=== PATIENT | male | born 1945 | race Caucasian/White ===

== ENCOUNTER → 2017-09-09 | Outpatient (CLI) | payer MEDICARE ==
--- NOTE | 2017-09-09 13:01 | MR ---
EXAMINATION TYPE: MR knee LT wo con DATE OF EXAM: 09/09/2017 COMPARISON: Plain film 09/02/2017 HISTORY: Left knee pain TECHNIQUE: Multiplanar, multisequence imaging of the left knee is performed without IV contrast. FINDINGS: MEDIAL MENISCUS: There is abnormal signal involving the posterior horn of the medial meniscus which i s somewhat diffuse as well as stellate in pattern and extends to the articular surface, anterior horn is intact. LATERAL MENISCUS: Diffuse increased signal also present in the anterior horn of the lateral meniscus with extension into the body, some linear increased signal present on coronal image 15 in the anterio r horn is thought to extend to the articular surface possibly indicative of tear, there may be a meni scal cyst immediately adjacent to the anterior horn of the medial meniscus CRUCIATE LIGAMENTS: The anterior and posterior cruciate ligaments are intact and unremarkable. COLLATERAL LIGAMENTS: The medial collateral ligament and lateral collateral ligament complex are inta ct and unremarkable. EXTENSOR MECHANISM: Visualized quadriceps and patellar tendons are intact. EFFUSION: There is a small joint effusion POPLITEAL CYST: No popliteal/more cyst. TRICOMPARTMENT SPACES: Maintained CARTILAGE: Suspect some grade II chondromalacia at the medial aspect of the tibial surface proximally and posteriorly BONE MARROW SIGNAL: Some probable reactive marrow signal change also noted in the proximal tibia post eriorly and medially. Cystic focus is present at the origin of the anterior cruciate ligament, there may be intraosseous ganglion. OTHER: Cystic focus present at the level of the insertion of the posterior cruciate ligament may rep resent a ganglion cyst. May be a small ganglion cyst at the level of the insertion of the pes anserin e complex, some increased signal may represent some tendinosis of the insertion. Subcutaneous edema c hanges present. IMPRESSION: Findings suggestive of tears of both medial and lateral menisci. Additional findings above.
== END | disposition home or self-care (01) ==
LOC: RADMRIMAIN 12:14
PROVIDERS: ATTEND Orthopaedic Surgery
DX: M25.462 Effusion, left knee (principal); R93.7 Abnormal findings on diagnostic imaging of other parts of musculoskeletal system

== ENCOUNTER → 2017-09-12 | Outpatient (CLI) | payer MEDICARE ==
[2017-09-12 11:03] LABS: Basophils % (A) 0 %; Eosinophils # (A) 0.2 k/uL (0-0.7); Eosinophils % (A) 3 %; HCT 43.3 % (39.0-53.0); HGB 14.1 gm/dL (13.0-17.5); Lymphocytes # (A) 1.1 k/uL (1.0-4.8); Lymphocytes % (A) 20 %; MCH 29.1 pg (25.0-35.0); MCHC 32.6 g/dL (31.0-37.0); MCV 89.4 fL (80.0-100.0); Mean Platelet Volume 8.9; Monocytes # (A) 0.4 k/uL (0-1.0); Monocytes % (A) 8 %; Neutrophils # (A) 3.7 k/uL (1.3-7.7); Neutrophils % (A) 66 %; Platelet Count 157 k/uL (150-450); RBC 4.84 m/uL (4.30-5.90); RDW 14.2 % (11.5-15.5); WBC 5.6 k/uL (3.8-10.6)
[2017-09-12 11:33] LABS: Potassium 4.4 mmol/L (3.5-5.1)
== END | disposition home or self-care (01) ==
LOC: LABPAT 09:56
PROVIDERS: ATTEND Orthopaedic Surgery
DX: Z01.812 Encounter for preprocedural laboratory examination (principal); M23.92 Unspecified internal derangement of left knee
CPT/HCPCS: 36415; 80051; 85025; 93005

== ENCOUNTER 2017-09-20 09:05 | Day surgery (SDC) | payer MEDICARE ==
[2017-09-17 15:27] VITALS: BMI 33.3
--- NOTE | 2017-09-19 10:41 | P.HPOR ---
History of Present Illness H&P Date: 09/19/17 Chief Complaint: left knee pain The patient is a 72 year old retired male who presents with worsening left knee pain. He notes medial pain with weightbearing activities and at night. He notes the pain significantly limits him. Review of Systems All systems: negative (left knee pain) Past Medical History Past Medical History: GERD/Reflux, Hypertension, Osteoarthritis (OA) History of Any Multi-Drug Resistant Organisms: None Reported Past Surgical History: Hernia Repair Additional Past Surgical History / Comment(s): Hemorrectomy, cataracts, ureter repaired. Past Anesthesia/Blood Transfusion Reactions: No Reported Reaction Smoking Status: Former smoker - Past Family History Mother Family Medical History: No Reported History Brother(s) Family Medical History: Cancer Sister(s) Family Medical History: Cancer Medications and Allergies Home Medications Medication Instructions Recorded Confirmed Type Aspirin 81 mg PO DAILY 09/17/17 09/17/17 History Ibuprofen [Motrin] 400 mg PO Q8HR PRN 09/17/17 09/17/17 History Omeprazole [PriLOSEC] 40 mg PO DAILY 09/17/17 09/17/17 History Tamsulosin HCl [Flomax] 0.4 mg PO DAILY 09/17/17 09/17/17 History amLODIPine/ATORVASTATIN [Caduet 5 1 tab PO DAILY 09/17/17 09/17/17 History mg-10 mg Tablet] Allergies Allergy/AdvReac Type Severity Reaction Status Date / Time No Known Allergies Allergy Verified 09/17/17 14:59 Physical Examination - Knee left Effusion grade: grade 1 Varus alignment in stance: normal Tenderness with palpation: medial Gait: normal ROM: extension: -5 degrees ROM: flexion: 120 degrees Strength: extension: 5/5 Strength: flexion: 5/5 Patella exam: normal Meniscal tests: medial meniscal tests: positive, medial joint line pain: positive Results - Diagnostic results Knee MRI: report reviewed (left knee medial and lateral meniscal tears) Assessment and Plan Assessment: Symptomatic left knee medial meniscal tear Plan: The patient's condition and treatment options were discussed. He opts to proceed with arthroscopy and possible partial medial meniscectom as he is having pain and mechanical symptoms that limit him. Time with Patient: Less than 30
[~2017-09-20 09:05] MED LIST: DEXAMETHASONE SOD PHOSPHATE 10 MG/ML 1 ML VIAL IV ONE; LACTATED RINGERS 1,000 ML IV SCH; LIDOCAINE 1% 20 ML VIAL (10MG/ML) FOR IV START INTRADERMA PRN; MIDAZOLAM 2 MG/2 ML VIAL IV PRN; ONDANSETRON 4 MG/2 ML VIAL IVP ONE; SCOPOLAMINE 1.5MG/72HR PATCH TRANSDERM ONE; ceFAZolin IN SWFI 2 GM/20 ML SYRINGE IVP ONE
[2017-09-20 09:42] VITALS: RESP 16
[2017-09-20] MEDS ORDERED: fentaNYL (PF) 50 MCG/ML 2 ML AMP ONE (10:31)
[2017-09-20] MEDS ORDERED: LIDOCAINE 1% INJ 10MG/ML (20 ML MDV) ONE (10:31)
[2017-09-20] MEDS ORDERED: HYDROmorphone (PF) 1 MG/ML ONE (10:31)
[2017-09-20] MEDS ORDERED: PROPOFOL 10 MG/ML 20 ML VIAL IV ONE (10:31)
[2017-09-20] MEDS ORDERED: MIDAZOLAM 2 MG/2 ML VIAL ONE (10:31)
[2017-09-20] MEDS ORDERED: SUCCINYLCHOLINE CHLORIDE 100 MG/5 ML SYR IV ONE (10:31)
[2017-09-20 11:37] VITALS: TEMP 97
--- NOTE | 2017-09-20 11:38 | P.OP ---
Date of Procedure: 09/20/17 Preoperative Diagnosis: Left knee internal derangement Postoperative Diagnosis: Left knee posterior medial meniscal tear/anterior lateral meniscal tear/grade 2 chondral injury distal medial femoral condyle/grade 2 chondral injury lateral patella facet Procedure(s) Performed: Left knee arthroscopic partial medial meniscectomy/partial lateral meniscectomy/ medial femoral chondrectomy/patellar chondroplasty Anesthesia: GETA Surgeon: Ollie Land Estimated Blood Loss (ml): 10 Pathology: none sent Condition: stable Disposition: PACU Indications for Procedure: The patient's a 72-year-old male who presents with progressive left knee pain and mechanical symptoms despite conservative measures. A discussion of the risks and benefits of operative intervention versus continued conservative measures was made with the patient. He opted to proceed with surgery. Operative risks to include infection, neurovascular injury, development of blood clots, possible incomplete resolution of symptoms, possible worsening symptoms and need for subsequent procedures was discussed. Informed consent was obtained. Operative Findings: As below Description of Procedure: The patient was brought to the operating room, and after induction of general anesthesia examined the left knee. Collaterals were stable, Selwyn was negative, and posterior drawer was negative. The left lower extremity was prepped and draped in normal fashion. A superior lateral portal was made through a 3 mm skin incision superior and lateral to the patella. This was used for outflow. A lateral portal was made through a similar incision lateral to the patella tendon above the joint. Diagnostic arthroscopy was performed. A medial portal was made through a similar incision medial to the patella tendon above the joint line. On inspection the medial compartment, he was noted to have an oblique tear involving the posterior portion the medial meniscus in the white-red junction. This was not amenable to repair. This was debrided back to stable base with straight baskets and a motorized shaver. The remaining medial meniscus was stable and intact. A corresponding grade 2 chondral injury was noted involving the posterior medial portion of the medial femoral condyle. There was a loose chondral fragment debrided back to stable base with a motorized shaver. On inspection of the notch, the anterior cruciate ligament appeared to be intact. On inspection of the lateral compartment, a small flap tear involving the anterior horn of the lateral meniscus in the white-junction was noted. This was debrided back to stable base with a motorized shaver. The remaining chondral surface and lateral meniscus appeared intact. On inspection the patellofemoral articulation, a grade 2 chondral injury was noted involving the lateral patellar facet. A small loose chondral fragment was debrided back to stable base with a motorized shaver. The gutters were clear of debris. The knee was then thoroughly irrigated. The portals were closed with Steri-Strips. A sterile dressing was applied in addition to a compression stocking. The patient was awoken from general anesthesia and transferred to recovery room in good condition. Blood loss was estimated at 10 mL. No complications were incurred.
[2017-09-20] MEDS: HYDROmorphone 0.5 MG/0.5 ML SYRINGE IVP PRN ×2 (11:41→11:50)
[2017-09-20] MEDS ORDERED: KETOROLAC 30 MG/ML 1 ML VIAL IVP ONE (11:42)
[2017-09-20] MEDS: MEPERIDINE 50 MG/ML SYRINGE IVP ONE ×2 (11:56→12:10)
[2017-09-20] MEDS ORDERED: hydrALAZINE HCL 20 MG/ML 1 ML VIAL IVP ONE (12:09)
[2017-09-20] MEDS ORDERED: traMADol 50 MG TAB PO ONE (12:43)
[2017-09-20 13:18] VITALS: BP 152/72; PULSE 56
== END 2017-09-20 13:40 | disposition home or self-care (01) ==
LOC: OR 09:05
PROVIDERS: ATTEND Orthopaedic Surgery
DX: S83.242A Other tear of medial meniscus, current injury, left knee, initial encounter (principal); S83.282A Other tear of lateral meniscus, current injury, left knee, initial encounter; X58.XXXA Exposure to other specified factors, initial encounter; K21.9 Gastro-esophageal reflux disease without esophagitis; I10 Essential (primary) hypertension; M19.90 Unspecified osteoarthritis, unspecified site; Z79.82 Long term (current) use of aspirin; Z79.899 Other long term (current) drug therapy; Z87.891 Personal history of nicotine dependence
CPT/HCPCS: 29880; J2250; J0360; J1100; J2175; J2405; J2001; J3010; J1885; J1170 ×2; J0330; J2704; J0690

== ENCOUNTER → 2017-11-25 | Outpatient (CLI) | payer MEDICARE ==
--- NOTE | 2017-11-25 08:27 | MR ---
EXAMINATION TYPE: MR shoulder LT wo con DATE OF EXAM: 11/25/2017 COMPARISON: Outside left shoulder x-ray 5 days ago. HISTORY: Left shoulder pain with difficulty raising overhead for one week per patient. TECHNIQUE: Multiplanar, multisequence imaging of the left shoulder is performed without contrast. FINDINGS: Rotator Cuff: There is full-thickness tear of the supraspinatus tendon retracted to level of the acro mion roughly 3.4 cm seen best paracoronal image 10. The infraspinatus tendon has marked abnormal increased signal with areas of partial tear worse along the bursal surface, some fibers remain intact to humeral head attachment. Marked surrounding fluid si gnal is present. High riding humeral head is noted. Rotator cuff muscle bulk is fairly well preserved. Subscapularis tendon shows marked increase surrounding fluid. It is suspected completely torn as morenita ps tendon is dislocated. Acromioclavicular Joint: There is mild to moderate joint space loss and capsular hypertrophy. Inferio r fat plane is maintained. Distal acromion morphology is unremarkable. Glenohumeral Joint: Moderate to large glenohumeral joint effusion is seen. Biceps Tendon: The long head of biceps is dislocated from normal location medially seen best paracoro nal images 10 through 14. Bone marrow signal: No focal abnormal marrow signal is appreciated. Other: Marked edema surrounds humeral head involvement extending to adjacent muscles. IMPRESSION: Findings consistent with massive rotator cuff tear with full-thickness retracted tear of supraspinatus tendon and partial tear of infraspinatus tendon, there is full-thickness tear of the he bscapularis tendon with long head biceps tendon dislocation. There is evidence of instability with hi gh riding humeral head noted.
== END | disposition home or self-care (01) ==
LOC: RADMRIMAIN 07:09
PROVIDERS: ATTEND Orthopaedic Surgery
DX: S46.012A Strain of muscle(s) and tendon(s) of the rotator cuff of left shoulder, initial encounter (principal); S43.315A Dislocation of left scapula, initial encounter

== ENCOUNTER → 2017-11-27 | Outpatient (CLI) | payer MEDICARE ==
[2017-11-27 10:41] LABS: Basophils % (A) 0 %; Eosinophils # (A) 0.2 k/uL (0-0.7); Eosinophils % (A) 2 %; HCT 42.7 % (39.0-53.0); HGB 14.4 gm/dL (13.0-17.5); Lymphocytes # (A) 1.2 k/uL (1.0-4.8); Lymphocytes % (A) 16 %; MCH 29.8 pg (25.0-35.0); MCHC 33.8 g/dL (31.0-37.0); MCV 88.3 fL (80.0-100.0); Mean Platelet Volume 8.4; Monocytes # (A) 0.4 k/uL (0-1.0); Monocytes % (A) 5 %; Neutrophils # (A) 5.7 k/uL (1.3-7.7); Neutrophils % (A) 74 %; Platelet Count 200 k/uL (150-450); RBC 4.84 m/uL (4.30-5.90); RDW 13.9 % (11.5-15.5); WBC 7.6 k/uL (3.8-10.6)
[2017-11-27 11:09] LABS: Potassium 4.3 mmol/L (3.5-5.1)
== END | disposition home or self-care (01) ==
LOC: LABPAT 10:05
PROVIDERS: ATTEND Orthopaedic Surgery
DX: Z01.812 Encounter for preprocedural laboratory examination (principal); S46.012D Strain of muscle(s) and tendon(s) of the rotator cuff of left shoulder, subsequent encounter
CPT/HCPCS: 36415; 80051; 85025

== ENCOUNTER 2017-12-03 06:52 | Day surgery (SDC) | payer MEDICARE ==
[2017-11-28 15:48] VITALS: BMI 34.7
--- NOTE | 2017-12-02 08:57 | HP ---
HISTORY AND PHYSICAL CHIEF COMPLAINT: Left shoulder pain. HISTORY OF PRESENT ILLNESS: The patient is a 72-year-old retired right-hand dominant gentleman who presents after a fall and injuring his left shoulder recently with progressive left shoulder pain and weakness. He denies previous problems. He has been having significant symptoms at night. He is having difficult time raising his arm over his head. PAST MEDICAL HISTORY: Significant for reflux disease and hypertension along with renal disease. PAST SURGICAL HISTORY: Significant for previous kidney surgery, hernia repair and hand surgery. CURRENT MEDICATIONS: 1. Caduet. 2. Aspirin. 3. Flomax. 4. Prilosec. ALLERGIES: He denies drug allergies. FAMILY HISTORY: Significant for cancer and diabetes. SOCIAL HISTORY: Significant for previous tobacco use; however, he quit in 1987. REVIEW OF SYSTEMS: Sixteen-point review of systems otherwise reviewed and is noncontributory. PHYSICAL EXAMINATION: On examination, the patient is approximately 5 feet 8 inches 230 pounds of endomorphic habitus. HEENT exam is nonfocal. Neck is supple. On examination of his left shoulder, he is tender about the anterior subacromial space. He has moderate subacromial crepitus. Active range of motion forward elevation 20 degrees, external rotation with arm at side 0 degrees, internal rotation to the buttock. Passively I am able to forward elevate him 80 degrees. He has marked guarding. Motor strength is 4- over 5 for external rotation with arm at the side and 4- over 5 for abduction. Osborne, Neer, and Speed tests are positive. His distal neurovascular exam appears otherwise intact in the left upper extremity. MRI report from 11/25/2017 shows a large tear of the left rotator cuff without significant muscular atrophy. Subluxation of the long head of biceps is noted. IMPRESSION: 1. Left shoulder acute rotator cuff tear. 2. Left shoulder biceps subluxation. RECOMMENDATIONS: I talked to the patient and his at length regarding his condition and treatment options. After thorough discussion, they opt to proceed with surgery. We will plan to proceed with arthroscopic evaluation with probable subacromial decompression, probable rotator cuff repair, and possible biceps tenotomy. We will likely perform that as an outpatient procedure. Risks and benefits were discussed at length in layman's terms. MMODL / IJN: [id number] /
[~2017-12-03 06:52] MED LIST changes: +MORPHINE SULFATE 2 MG/ML SYRINGE IV PRN; -SCOPOLAMINE 1.5MG/72HR PATCH TRANSDERM ONE
[2017-12-03] MEDS ORDERED: ROCURONIUM BROMIDE 10 MG/ML 10 ML VIAL IV ONE (08:58)
[2017-12-03] MEDS ORDERED: ePHEDrine SULFATE/0.9% NACL/PF 50 MG/5 ML SYRINGE IV ONE (08:58)
[2017-12-03] MEDS ORDERED: PROPOFOL 10 MG/ML 20 ML VIAL IV ONE (08:58)
[2017-12-03] MEDS ORDERED: SUCCINYLCHOLINE CHLORIDE 100 MG/5 ML SYR IV ONE (08:58)
[2017-12-03] MEDS ORDERED: LIDOCAINE 1% INJ 10MG/ML (20 ML MDV) ONE (08:58)
[2017-12-03] MEDS ORDERED: GLYCOPYRROLATE 0.2 MG/ML 2 ML VIAL ONE (08:58)
[2017-12-03] MEDS ORDERED: fentaNYL (PF) 50 MCG/ML 2 ML AMP ONE (08:58)
[2017-12-03] MEDS ORDERED: NEOSTIGMINE 1 MG/ML 10 ML VIAL ONE (08:58)
[2017-12-03] MEDS ORDERED: MIDAZOLAM 2 MG/2 ML VIAL ONE (08:58)
--- NOTE | 2017-12-03 09:29 | P.ONQ ---
Anesthesiology Proc Note - PNB - Peripheral Nerve Block Performed Left Interscalene Indication: Acute Post-Operative Pain, Requested by physician (Dr Land) Sedation Type: Sedate with meaningful contact maintained Preparation: Sterile Prep Position: Supine Catheter: None Needle Types: Other (see comment) (Kraig) Needle Size: 50mm (2") Needle Gauge: 21 Technique: Ultrasound Injectate: 0.5% Ropivacaine (see comment for volume) (0.5% Ropivacaine 14cc, 2.0 % Lidocaine with 1:200,000 epi 14cc) Blood Aspirated: No Pain Paresthesia on Injection Noted: No Resistance on Injection: Normal Events: Uneventful and Well Tolerated
[2017-12-03] MEDS: HYDROmorphone 1 MG/ML 1 ML SYRINGE IVP ONE ×2 (10:50→10:55)
--- NOTE | 2017-12-03 10:50 | P.OP ---
Date of Procedure: 12/03/17 Preoperative Diagnosis: Symptomatic left rotator cuff tear Postoperative Diagnosis: 4 cm left rotator cuff tear/medial subluxation biceps with high-grade partial- thickness tear Procedure(s) Performed: Left shoulder arthroscopic subacromial decompression/biceps tenotomy/rotator cuff repair Implants: Arthrex 4.75 mm swivel lock anchor 2, 5.5 mm swivel lock anchor 2 Anest[facility]: [facility], [place] Surgeon: Ollie Land Human Resource Assistant #1: Munir Nickerson Estimated Blood Loss (ml): 10 Pathology: none sent Condition: stable Disposition: PACU Indications for Procedure: The patient's a 72-year-old male who presents after injuring his left shoulder with difficulty lifting his arm. He was noted to have an acute symptomatic rotator cuff tear. A discussion of the risks and benefits of operative intervention versus conservative measures was made with the patient. He opted to proceed with surgery. Operative risks to include infection, neurovascular injury, development of blood clots, possible tendon rerupture, possible postoperative stiffness and need for subsequent procedures was discussed. Informed consent was obtained. Operative Findings: As below Description of Procedure: The patient was brought to the operating room, and after induction of general anesthesia I examined the left shoulder. There were moderate adhesions noted. I gently manipulated the shoulder obtaining full external rotation and then full forward elevation. I did encounter again moderate adhesions. He was then placed in a beachchair position. The bony prominences were appropriately padded. The bony outlines of the distal clavicle, and coracoid process, and acromion were outlined with a skin marker. The glenohumeral joint was inflated with 50 mL of saline utilizing a spinal needle from posterior approach. A posterior portal was made through a 5 mm skin incision 1 cm medial and inferior to the posterior lateral border the acromion. A blunt trocar was used to easily into the joint. Diagnostic arthroscopy was performed. An anterior portal was made just lateral to the coracoid process entering the joint above the subscapularis tendon. There was medial subluxation of the biceps with an upper subscapularis tear. A high-grade partial-thickness tear of the intra- articular portion the biceps was noted therefore was elected to proceed with tenotomy at this point. The biceps was released from the superior labrum with electrocautery. A tear of the anterior labrum was also noted. On inspection the rotator cuff, a 4 cm tear was noted involving the supraspinatus and infraspinatus with mild retraction. The posterior portion the cuff appeared intact. The posterior labrum was intact. The arthroscope was then placed into the subacromial space. A lateral portal was made through a 5 mm skin incision 2 cm inferior to the anterolateral border the acromion. The soft tissue on the undersurface the acromion was debrided with a motorized shaver and electrocautery clearly defining the anterior medial and lateral borders as well as the distal clavicle. An anterior inferior acromioplasty is performed with a motorized jacek starting anterolateral, then extending this posteriorly, then extending this medially. I was able to convert to a flat acromion. This was verified from the posterior and lateral viewing portals. The greater tuberosity was lightly decorticated utilizing a motorized jacek down to a bleeding bony surface. The rotator cuff was mobilized and brought back to the greater tuberosity easily. A traction suture was placed to help with this. An accessory superior lateral portals made just off the lateral edge of the acromion through a 4 mm skin incision. The appropriate starting awl was utilized just off the articular surface for placement of 2 anchors preloaded with #2 fiber tape. 4.75 mm anchors were placed with good purchase. The fiber tape was then passed through the rotator cuff with a scorpion suture passer. A lateral row was created crisscrossing these fiber tapes utilizing 2 anchors. 5.5 mm swivel lock anchors were placed after appropriatelying the suture. Final arthroscopic views showed adequate compression of the footprint. The arthroscope was then removed. The portals were closed with simple 3-0 nylon suture. A sterile dressing was applied in addition to an abductor brace. The patient was then awoken from general anesthesia and transferred to recovery room in good condition. Blood loss was estimated 10 mL. No complications were incurred. Sponge and needle counts were correct in the case.
[2017-12-03 10:56] VITALS: TEMP 97
[2017-12-03] MEDS: fentaNYL (PF) 50 MCG/ML 2 ML AMP IV PRN ×2 (11:03→11:09)
[2017-12-03 11:27] VITALS: RESP 16
[2017-12-03] MEDS ORDERED: LACTATED RINGERS 1,000 ML IV ONE (11:27)
[2017-12-03 12:17] VITALS: BP 167/60; PULSE 64
[2017-12-03] MEDS ORDERED: HYDROcodone/APAP 7.5-325MG 1 EACH TAB PO ONE (12:20)
== END 2017-12-03 13:16 | disposition home or self-care (01) ==
LOC: OR 06:52
PROVIDERS: ATTEND Orthopaedic Surgery
DX: S46.012A Strain of muscle(s) and tendon(s) of the rotator cuff of left shoulder, initial encounter (principal); S46.112A Strain of muscle, fascia and tendon of long head of biceps, left arm, initial encounter; S43.492A Other sprain of left shoulder joint, initial encounter; W19.XXXA Unspecified fall, initial encounter; K21.9 Gastro-esophageal reflux disease without esophagitis; I10 Essential (primary) hypertension; N28.9 Disorder of kidney and ureter, unspecified; E78.5 Hyperlipidemia, unspecified; N40.0 Benign prostatic hyperplasia without lower urinary tract symptoms; Z79.82 Long term (current) use of aspirin; Z79.899 Other long term (current) drug therapy; Z87.891 Personal history of nicotine dependence
CPT/HCPCS: 29827; 29826; 64415; C1713 ×4; J2250; J1100; J2710; J2405; J2001; J3010; J1170; J0330; J2704; J0690

== ENCOUNTER → 2019-06-09 | Day surgery (SDC) | payer MEDICARE ==
[2019-06-04 13:17] VITALS: BMI 34.2
[~2019-06-09] MED LIST changes: -DEXAMETHASONE SOD PHOSPHATE 10 MG/ML 1 ML VIAL IV ONE; -LIDOCAINE 1% 20 ML VIAL (10MG/ML) FOR IV START INTRADERMA PRN; +LIDOCAINE 1% INJ 10MG/ML (20 ML MDV) ONE; -MIDAZOLAM 2 MG/2 ML VIAL IV PRN; -MORPHINE SULFATE 2 MG/ML SYRINGE IV PRN; -ONDANSETRON 4 MG/2 ML VIAL IVP ONE; +PROPOFOL 10 MG/ML 20 ML VIAL IV ONE; -ceFAZolin IN SWFI 2 GM/20 ML SYRINGE IVP ONE
[2019-06-09 08:13] VITALS: TEMP 98.1
--- NOTE | 2019-06-09 09:24 | P.GSHP ---
History of Present Illness H&P Date: 06/09/19 Chief Complaint: GI bleed This a 74-year-old male who presents today for colonoscopy. Patient has had a GI bleed and positive cologuard test. Past Medical History Past Medical History: GERD/Reflux, Hyperlipidemia, Hypertension, Osteoarthritis (OA), Prostate Disorder Additional Past Medical History / Comment(s): pos.cologuard,hemorrhoids History of Any Multi-Drug Resistant Organisms: None Reported Past Surgical History: Hernia Repair, Orthopedic Surgery Additional Past Surgical History / Comment(s): Hemorroidectomy, cataracts, ur eter repaired, lt shoulder surgery Past Anesthesia/Blood Transfusion Reactions: No Reported Reaction Smoking Status: Former smoker - Past Family History Mother Family Medical History: No Reported History Brother(s) Family Medical History: Cancer Sister(s) Family Medical History: Cancer Medications and Allergies Home Medications Medication Instructions Recorded Confirmed Type Aspirin 81 mg PO DAILY 09/17/17 06/09/19 History Omeprazole [PriLOSEC] 40 mg PO DAILY 09/17/17 06/09/19 History Tamsulosin HCl [Flomax] 0.4 mg PO DAILY 09/17/17 06/09/19 History Lisinopril [Zestril] 10 mg PO DAILY 06/04/19 06/09/19 History amLODIPine/ATORVASTATIN 1 tab PO DAILY 06/04/19 06/09/19 History [amLODIPine/ATORVASTATIN 10-10 MG] Allergies Allergy/AdvReac Type Severity Reaction Status Date / Time No Known Allergies Allergy Verified 06/09/19 08:10 Surgical - Exam Vital Signs Temp Pulse BP Pulse Ox 98.1 F 76 175/91 96 06/09/19 08:12 06/09/19 08:12 06/09/19 08:12 06/09/19 08:12 - General well developed, well nourished, no distress - Eyes PERRL - ENT normal pinna - Neck no masses - Respiratory normal expansion - Cardiovascular Rhythm: regular - Abdomen Abdomen: soft, non tender Assessment and Plan Assessment: GI bleed. We'll perform Colonoscopy.
--- NOTE | 2019-06-09 09:32 | P.OP ---
Date of Procedure: 06/09/19 Preoperative Diagnosis: GI bleed Postoperative Diagnosis: Diverticulosis Procedure(s) Performed: Colonoscopy Anesthesia: MAC Surgeon: Handy Pena Pathology: none sent Condition: stable Disposition: PACU Description of Procedure: Patient's placed on the endoscopy table in the lateral position. He received IV sedation. Digital rectal exam was performed which revealed no rebound is. The flexible colonoscope was then placed patient anus and passed throughout the entire colon. The cecal valve was visualized. Cecum, ascending and transverse colon appeared normal. In the descending and sigmoid colon there is mild diverticulosis. There is no evidence of diverticulitis. Scope was then brought back the rectum and this appeared normal. Scope withdrawn for patient. There is no evidence of any GI bleed. The presumed patient may have had a hemorrhoidal or diverticular bleed.
[2019-06-09 09:36] VITALS: RESP 16
[2019-06-09 09:48] VITALS: BP 138/70; PULSE 53
== END ==
LOC: ORWHC2ENDO 07:43
PROVIDERS: ATTEND Surgery
DX: K57.31 Diverticulosis of large intestine without perforation or abscess with bleeding (principal); I10 Essential (primary) hypertension; E78.5 Hyperlipidemia, unspecified; K21.9 Gastro-esophageal reflux disease without esophagitis; M19.90 Unspecified osteoarthritis, unspecified site; N42.9 Disorder of prostate, unspecified; Z79.82 Long term (current) use of aspirin; Z79.899 Other long term (current) drug therapy; Z98.890 Other specified postprocedural states; Z87.891 Personal history of nicotine dependence; Z80.9 Family history of malignant neoplasm, unspecified; Z98.42 Cataract extraction status, left eye; Z98.41 Cataract extraction status, right eye
CPT/HCPCS: 45378; J2001; J2704

== ENCOUNTER 2021-02-01 08:28 | Inpatient (IN) | payer MEDICARE, OTHER ==
[2021-02-01] MEDS ORDERED: ACETAMINOPHEN TAB 500 MG TAB PO STA (08:32)
--- NOTE | 2021-02-01 08:47 | ED ---
General Adult HPI - General Chief complaint: Fever Stated complaint: Vomiting, fever, blood in urine Time Seen by Provider: 02/01/21 08:32 Source: patient, EMS, RN notes reviewed, old records reviewed Mode of arrival: EMS Limitations: altered mental status - History of Present Illness Initial comments: 75-year-old male brought in by paramedics for evaluation of confusion, hematuria and fever. Symptoms have began in the last 24 hours. Patient denying pain complaints. According to paramedics he's had several episodes of vomiting. He was febrile and tachycardic. Temperature was 103. He had had some issues with dysuria and hematuria over the past night. His states that he did take a Tylenol 3 starter evening for suspected fever. He was noted to be hypoxic by paramedics requiring supplemental oxygen. He does not have a previous history of oxygen dependent seen. He's had no preceding cough reported. Patient has been vaccinated against coronavirus. - Related Data Home Medications Medication Instructions Recorded Confirmed Aspirin 81 mg PO DAILY 09/17/17 02/01/21 Omeprazole [PriLOSEC] 40 mg PO DAILY 09/17/17 02/01/21 Tamsulosin HCl [Flomax] 0.4 mg PO DAILY 09/17/17 02/01/21 Atorvastatin Calcium [Lipitor] 10 mg PO DAILY 02/01/21 02/01/21 Lisinopril-Hctz 20-12.5 mg 1 tab PO DAILY 02/01/21 02/01/21 [Zestoretic 20-12.5] Allergies Allergy/AdvReac Type Severity Reaction Status Date / Time No Known Allergies Allergy Verified 02/01/21 10:04 Review of Systems ROS Statement: Those systems with pertinent positive or pertinent negative responses have been documented in the HPI. ROS Other: All systems not noted in ROS Statement are negative. Past Medical History Past Medical History: GERD/Reflux, Hyperlipidemia, Hypertension, Osteoarthritis (OA), Prostate Disorder Additional Past Medical History / Comment(s): pos.cologuard,hemorrhoids History of Any Multi-Drug Resistant Organisms: None Reported Past Surgical History: Hernia Repair, Orthopedic Surgery Additional Past Surgical History / Comment(s): Hemorroidectomy, cataracts, ureter repaired, lt shoulder surgery Past Anesthesia/Blood Transfusion Reactions: No Reported Reaction Past Psychological History: No Psychological Hx Reported Smoking Status: Never smoker Past Alcohol Use History: Occasional Past Drug Use History: None Reported - Past Family History Mother Family Medical History: No Reported History Brother(s) Family Medical History: Cancer Sister(s) Family Medical History: Cancer General Exam Limitations: altered mental status General appearance: lethargic, in distress Head exam: Present: atraumatic, normocephalic Eye exam: Present: normal appearance, PERRL ENT exam: Present: mucous membranes dry Neck exam: Present: normal inspection. Absent: tenderness, meningismus Respiratory exam: Present: respiratory distress, rhonchi, decreased breath sounds Cardiovascular Exam: Present: normal rhythm, tachycardia GI/Abdominal exam: Present: soft. Absent: distended, tenderness, guarding Extremities exam: Present: normal inspection, normal capillary refill. Absent: pedal edema Neurological exam: Present: alert, oriented X3 (Slow to respond), CN II-XII intact. Absent: motor sensory deficit Psychiatric exam: Present: normal affect, normal mood Skin exam: Present: diaphoretic Course Vital Signs 02/01/21 02/01/21 08:32 10:00 Temperature 103.7 F H 98.9 F Pulse Rate 128 H 88 Respiratory 22 19 Rate Blood Pressure 170/100 117/59 O2 Sat by Pulse 94 L 98 Oximetry EKG Findings - EKG Comments: EKG Findings:: Sinus tachycardia with PVC right bundle branch block, left anterior fascicular block, rate of 122, UT interval 152, QRS duration 140, QTC 473 Procedures - Sepsis Sepsis Focused Exam #1 Time Sepsis Criteria Met: 08:30 Sepsis Focused Exam Date: 02/01/21 Sepsis Focused Exam Time: 10:30 Sepsis Focused Exam Complete: Yes Vital Signs & RN Notes Reviewed: Yes Capillary Refill: < 2 Seconds: Fingers, Toes Peripheral Pulses: Normal: Radial (R), Radial (L), Dorsalis Pedis (R), Dorsalis Pedis (L) Skin Color: Normal for Patient Respiratory Exam: normal lung sounds Cardiovascular Exam: regular rate, normal rhythm Medical Decision Making - Medical Decision Making 75-year-old male brought in with hematuria, confusion, high fever. Resuscitation was initiated in the emergency department for this febrile tachycardic patient. IV fluids started, IV antibiotics initiated for suspected UTI. Lewis catheter was placed. Urinalysis is positive for signs of infection, urine culture and blood cultures pending. He has a elevated white blood cell count, elevated lactic acid at 3.6. After initial treatment with Tylenol, IV fluids and IV antibiotics he becomes alert with normalized vitals. He has no focal numbness or weakness. I did perform a head CT which showed concern for ischemic change in the frontal lobes. Patient was reevaluated after these findings and again no focal neurologic findings, no headache. He was given an aspirin. Chest x-ray negative for focal pneumonia. Coronavirus and influenza testing is negative. Patient will be admitted for IV fluid and IV antibiotics. Patient will be admitted to [facility] - Lab Data Result diagrams: 02/01/21 08:58 02/01/21 08:58 Lab Results 02/01/21 02/01/21 02/01/21 Range/Units 08:58 08:58 08:58 WBC 15.1 H (3.8-10.6) k/uL RBC 5.13 (4.30-5.90) m/uL Hgb 15.9 (13.0-17.5) gm/dL Hct 45.6 (39.0-53.0) % MCV 88.9 (80.0-100.0) fL MCH 31.0 (25.0-35.0) pg MCHC 34.8 (31.0-37.0) g/dL RDW 13.8 (11.5-15.5) % Plt Count 185 (150-450) k/uL MPV 9.8 PT 10.5 (9.0-12.0) sec INR 1.0 (<1.2) APTT 20.9 L (22.0-30.0) sec Sodium (137-145) mmol/L Potassium (3.5-5.1) mmol/L Chloride (98-107) mmol/L Carbon Dioxide (22-30) mmol/L Anion Gap mmol/L BUN (9-20) mg/dL Creatinine (0.66-1.25) mg/dL Est GFR (CKD-EPI)AfAm (>60 ml/min/1.73 sqM) Est GFR (CKD-EPI)NonAf (>60 ml/min/1.73 sqM) Glucose (74-99) mg/dL Plasma Lactic Acid Dami (0.7-2.0) mmol/L Calcium (8.4-10.2) mg/dL Total Bilirubin (0.2-1.3) mg/dL AST (17-59) U/L ALT (4-49) U/L Alkaline Phosphatase (38-126) U/L Troponin I (0.000-0.034) ng/mL Total Protein (6.3-8.2) g/dL Albumin (3.5-5.0) g/dL Urine Color Red Urine Appearance Turbid (Clear) Urine pH 6.5 (5.0-8.0) Ur Specific [place] 1.018 (1.001-1.035) Urine Protein 2+ H (Negative) Urine Glucose (UA) 1+ H (Negative) Urine Ketones Negative (Negative) Urine Blood Large H (Negative) Urine Nitrite Negative (Negative) Urine Bilirubin Negative (Negative) Urine Urobilinogen <2.0 (<2.0) mg/dL Ur Leukocyte Esterase Large H (Negative) Urine RBC >182 H (0-5) /hpf Urine WBC >182 H (0-5) /hpf Urine Bacteria Many H (None) /hpf Coronavirus (PCR) (Not Detectd) Influenza Type A RNA (Not Detectd) Influenza Type B (PCR) (Not Detectd) 02/01/21 02/01/21 02/01/21 Range/Units 08:58 08:58 08:58 WBC (3.8-10.6) k/uL RBC (4.30-5.90) m/uL Hgb (13.0-17.5) gm/dL Hct (39.0-53.0) % MCV (80.0-100.0) fL MCH (25.0-35.0) pg MCHC (31.0-37.0) g/dL RDW (11.5-15.5) % Plt Count (150-450) k/uL MPV PT (9.0-12.0) sec INR (<1.2) APTT (22.0-30.0) sec Sodium 139 (137-145) mmol/L Potassium 3.2 L (3.5-5.1) mmol/L Chloride 103 (98-107) mmol/L Carbon Dioxide 21 L (22-30) mmol/L Anion Gap 15 mmol/L BUN 19 (9-20) mg/dL Creatinine 1.24 (0.66-1.25) mg/dL Est GFR (CKD-EPI)AfAm 65 (>60 ml/min/1.73 sqM) Est GFR (CKD-EPI)NonAf 56 (>60 ml/min/1.73 sqM) Glucose 149 H (74-99) mg/dL Plasma Lactic Acid Dami 3.6 H* (0.7-2.0) mmol/L Calcium 9.7 (8.4-10.2) mg/dL Total Bilirubin 1.1 (0.2-1.3) mg/dL AST 25 (17-59) U/L ALT 21 (4-49) U/L Alkaline Phosphatase 91 (38-126) U/L Troponin I 0.032 (0.000-0.034) ng/mL Total Protein 6.9 (6.3-8.2) g/dL Albumin 4.2 (3.5-5.0) g/dL Urine Color Urine Appearance (Clear) Urine pH (5.0-8.0) Ur Specific [place] (1.001-1.035) Urine Protein (Negative) Urine Glucose (UA) (Negative) Urine Ketones (Negative) Urine Blood (Negative) Urine Nitrite (Negative) Urine Bilirubin (Negative) Urine Urobilinogen (<2.0) mg/dL Ur Leukocyte Esterase (Negative) Urine RBC (0-5) /hpf Urine WBC (0-5) /hpf Urine Bacteria (None) /hpf Coronavirus (PCR) (Not Detectd) Influenza Type A RNA (Not Detectd) Influenza Type B (PCR) (Not Detectd) 02/01/21 02/01/21 Range/Units 08:58 08:58 WBC (3.8-10.6) k/uL RBC (4.30-5.90) m/uL Hgb (13.0-17.5) gm/dL Hct (39.0-53.0) % MCV (80.0-100.0) fL MCH (25.0-35.0) pg MCHC (31.0-37.0) g/dL RDW (11.5-15.5) % Plt Count (150-450) k/uL MPV PT (9.0-12.0) sec INR (<1.2) APTT (22.0-30.0) sec Sodium (137-145) mmol/L Potassium (3.5-5.1) mmol/L Chloride (98-107) mmol/L Carbon Dioxide (22-30) mmol/L Anion Gap mmol/L BUN (9-20) mg/dL Creatinine (0.66-1.25) mg/dL Est GFR (CKD-EPI)AfAm (>60 ml/min/1.73 sqM) Est GFR (CKD-EPI)NonAf (>60 ml/min/1.73 sqM) Glucose (74-99) mg/dL Plasma Lactic Acid Dami (0.7-2.0) mmol/L Calcium (8.4-10.2) mg/dL Total Bilirubin (0.2-1.3) mg/dL AST (17-59) U/L ALT (4-49) U/L Alkaline Phosphatase (38-126) U/L Troponin I (0.000-0.034) ng/mL Total Protein (6.3-8.2) g/dL Albumin (3.5-5.0) g/dL Urine Color Urine Appearance (Clear) Urine pH (5.0-8.0) Ur Specific [place] (1.001-1.035) Urine Protein (Negative) Urine Glucose (UA) (Negative) Urine Ketones (Negative) Urine Blood (Negative) Urine Nitrite (Negative) Urine Bilirubin (Negative) Urine Urobilinogen (<2.0) mg/dL Ur Leukocyte Esterase (Negative) Urine RBC (0-5) /hpf Urine WBC (0-5) /hpf Urine Bacteria (None) /hpf Coronavirus (PCR) Not Detected (Not Detectd) Influenza Type A RNA Not Detected (Not Detectd) Influenza Type B (PCR) Not Detected (Not Detectd) Critical Care Time Critical Care Time: Yes Total Critical Care Time: 35 Disposition Clinical Impression: Sepsis, UTI (urinary tract infection) Disposition: ADMITTED IP TO THIS [facility] Condition: Stable Is patient prescribed a controlled substance at d/c from ED?: No Referrals: Deanna Hunter III, MD [Primary Care Provider] - 1-2 days Decision to Admit Reason: Admit from EC Decision Date: 02/01/21 Decision Time: 10:31
[2021-02-01] MEDS: SODIUM CHLORIDE 0.9% 500 ML 500 ML IV SCH ×2 (08:56→10:03)
[2021-02-01] MEDS: SODIUM CHLORIDE 0.9% 1,000 ML IV SCH ×2 (08:56→19:41)
[2021-02-01] MEDS ORDERED: ONDANSETRON 4 MG/2 ML VIAL IVP STA (09:00)
--- NOTE | 2021-02-01 09:19 | XR ---
EXAMINATION TYPE: XR chest 1V portable DATE OF EXAM: 02/01/2021 COMPARISON: NONE HISTORY: Fever TECHNIQUE: Single frontal view of the chest is obtained. FINDINGS: Heart is enlarged. No pleural effusion or pneumothorax. Postsurgical change overlying the cervical spine. Arthropathy shoulders. No overt failure. Atherosclerotic change aorta. IMPRESSION: Cardiomegaly.
[2021-02-01 09:27] LABS: Albumin 4.2 g/dL (3.5-5.0); Calcium 9.7 mg/dL (8.4-10.2); Potassium 3.2 mmol/L (3.5-5.1); Total Bilirubin 1.1 mg/dL (0.2-1.3); Total Protein 6.9 g/dL (6.3-8.2)
[2021-02-01 09:30] LABS: Appearance,Urine Turbid (Clear); Bacteria,Urine Many /hpf; Bilirubin,Urine Negative (Negative); Blood,Urine Large (Negative); Color,Urine Red; Glucose,Urine (UA) 1+ (Negative); Ketones,Urine Negative (Negative); Leukocyte Esterase,Urine Large (Negative); Nitrite,Urine Negative (Negative); PH, Urine 6.5 (5.0-8.0); Protein,Urine 2+ (Negative); RBC,Urine >182 /hpf (0-5); Specific Gravity,Urine 1.018 (1.001-1.035); Urobilinogen,Urine <2.0 mg/dL (<2.0); WBC,Urine >182 /hpf (0-5)
[2021-02-01 09:38] LABS: HCT 45.6 % (39.0-53.0); HGB 15.9 gm/dL (13.0-17.5); MCHC 34.8 g/dL (31.0-37.0); MCV 88.9 fL (80.0-100.0); Mean Platelet Volume 9.8; Platelet Count 185 k/uL (150-450); RBC 5.13 m/uL (4.30-5.90); RDW 13.8 % (11.5-15.5); WBC 15.1 k/uL (3.8-10.6)
[2021-02-01] MEDS ORDERED: POTASSIUM CHLORIDE ER 20 MEQ TAB.ER PO STA (09:39)
--- NOTE | 2021-02-01 09:42 | CT ---
EXAMINATION TYPE: CT brain wo con DATE OF EXAM: 02/01/2021 COMPARISON: None HISTORY: AMS CT DLP: 1147.4 mGycm Automated exposure control for dose reduction was used. FINDINGS: Mild generalized degenerative change with low attenuation in the white matter which is nonspecific. N o midline shift or mass effect. Punctate densities in the basal ganglia suggest remote lacunar infarc t. Intracranial atherosclerotic changes noted. Within the left frontal lobe there is an area of low a ttenuation which could represent an area of acute or recent ischemia Orbits are symmetric. There is mild chronic sinusitis and bilateral mastoiditis. Craniocervical junct ion maintained. Sella turcica has a normal appearance. IMPRESSION: 1. WITHIN THE LEFT FRONTAL LOBE THERE IS AN AREA OF LOW ATTENUATION EXTENDS TO THE CORTEX. AN AREA OF ACUTE OR RECENT ISCHEMIA IN THE DIFFERENTIAL DIAGNOSIS. CORRELATE CLINICALLY. 2. DEGENERATIVE AND NONSPECIFIC WHITE MATTER CHANGES. REMOTE MICROVASCULAR ISCHEMIA IN THE DIFFERENTI AL DIAGNOSIS. 3. NO EVIDENCE OF ACUTE HEMORRHAGE OR MIDLINE SHIFT. 4. CHANGES OF MILD SINUSITIS AND MASTOIDITIS
[2021-02-01] MEDS ORDERED: ASPIRIN 325 MG TAB PO STA (09:44)
[2021-02-01 09:45] LABS: Prothrombin Time 10.5 sec (9.0-12.0)
[2021-02-01 09:54] LABS: Partial Thromboplastin Time 20.9 sec (22.0-30.0)
[2021-02-01] MEDS ORDERED: ONDANSETRON 4 MG/2 ML VIAL IVP PRN (10:26)
[2021-02-01] MEDS ORDERED: NALOXONE 0.4 MG/ML 1 ML VIAL IV PRN (10:26)
[2021-02-01 10:32] LABS: Band Neutrophils % 3 %; Neutrophils % (M) 91 %; Nucleated Red Blood Cells 0 /100 WBC (0-0); Total Cells Counted 100
[2021-02-01] MEDS ORDERED: IOPAMIDOL CONTRAST (ORAL USE) VIAL PO PRN (16:58)
--- NOTE | 2021-02-01 19:32 | HP ---
HISTORY AND PHYSICAL DATE OF SERVICE: 02/01/2021 CHIEF COMPLAINTS: Fever and weakness, vomiting and blood in the urine and hematuria. HISTORY OF PRESENT ILLNESS: This 75-year-old gentleman with a past medical history of GERD, hypertension, hyperlipidemia, history of DJD, history of prostate disorder being followed by Dr. Hunter in the outpatient setting, was not feeling well today. The patient had some confusion, hematuria, and fever for the last 24 hours. The patient had several episodes of vomiting and patient was febrile and tachycardic and temperature 103, and the patient was taken to [facility] and 2 g of Rocephin was given for apparent UTI and the patient felt much better. Potassium is 3.2. There is no history of headache, loss of consciousness, seizures. Covid 19 influenza testing negative. WBC 15.1. PAST MEDICAL HISTORY: History of GERD, hypertension, hyperlipidemia, history of DJD, history of prostate disorder, history of hemorrhoids. MEDICATIONS: Home medications are Flomax, Prilosec, Zestoretic, Lipitor and aspirin. ALLERGIES: None. FAMILY HISTORY: No history of heart disease or strokes in the family. SOCIAL HISTORY: Patient quit smoking about 30 years ago. No history of alcohol intake. REVIEW OF SYSTEMS: ENT: No diminished vision. No diminished hearing. CARDIOVASCULAR system: No angina or palpitations. RESPIRATORY: As mentioned earlier. GI: As mentioned earlier. : As mentioned earlier. NERVOUS SYSTEM: No numbness, weakness. ALLERGY/IMMUNOLOGY: No asthma or hayfever. MUSCULOSKELETAL as mentioned earlier. HEMATOLOGY/ONCOLOGY: No history of anemia. ENDOCRINE: No history of diabetes or hypothyroidism. CONSTITUTIONAL: As mentioned earlier. DERMATOLOGY: Negative. RHEUMATOLOGY: Negative. PSYCHIATRIC: As mentioned earlier. PHYSICAL EXAMINATION: Alert and oriented times three. Pulse is 78. Blood pressure is 170/100, pulse is 128 on admission, temperature 103.7, pulse ox 94% on 6 L. HEENT: Conjunctivae normal. Oral mucosa moist. NECK is no jugular venous distention. No carotid bruit. No lymph node enlargement. CARDIOVASCULAR systems: S1, S2 muffled. RESPIRATION: Breath sounds diminished in the bases. A few rhonchi. No crackles. ABDOMEN: Soft, nontender. No mass palpable. Soft lower part of the abdomen. LEGS: No edema. No swelling. NERVOUS SYSTEM: Higher functions as mentioned earlier. Moves all four limbs. No focal motor or sensory deficits. LYMPHATICS: No lymph nodes palpable in the neck, axillae or groin. SKIN. No ulcer, rashes or bleeding. JOINTS: No active deforming arthropathy. LABS: At this time shows: WBC 15.1. Otherwise sodium 130, potassium 3.2. UA noted. Lactic acid noted. ASSESSMENT: 1. Acute urinary tract infection with sepsis present on admission. 2. Change in mental status, acute metabolic encephalopathy secondary to sepsis. 3. Acute hypoxic respiratory failure. 4. Rule out left frontal lobe stroke or abnormality. 5. Increased WBC. 6. Hypokalemia. 7. Elevated lactic acid secondary to sepsis. 8. History of gastroesophageal reflux disease. 9. Hypertension. 10.Hyperlipidemia. 11.History of degenerative joint disease. 12.History of prostate disorder. 13.History of hemorrhoids. 14.Obesity with body mass index 31.4. 15.FULL CODE. RECOMMENDATIONS AND DISCUSSION: This 75-year-old gentleman who presented with multiple complex medical issues, we will monitor the patient closely, continue the current medications, management and symptomatic treatment. Otherwise, at this time, broad-spectrum IV antibiotics. Replace potassium. Follow the cultures. The CT brain was done which showed left frontal lobe area of low attenuation extending to the cortex. Possible stroke needs to be ruled out the and some DJD. Otherwise prognosis guarded because of multiple complex medical problems. See orders for details. I would also recommend a CT scan of the abdomen and pelvis to complete the workup. MMODL / IJN: [id number] /
[2021-02-01] MEDS: ACETAMINOPHEN TAB 325 MG TAB PO PRN (20:53)
--- NOTE | 2021-02-01 22:25 | CT ---
EXAMINATION TYPE: CT abdomen pelvis wo con DATE OF EXAM: 02/01/2021 COMPARISON: November 06, 2011 HISTORY: [place] CT DLP: [id number] mGycm Automated exposure control for dose reduction was used. Images obtained from the diaphragm to the floor the pelvis with oral contrast only. There is some mild atelectasis at the lung bases. Heart is enlarged. There is no pericardial effusion . There is no pleural effusion. Liver spleen stomach pancreas gallbladder appear intact. Bile ducts are not dilated. There is no adre nal mass. There is moderate bilateral hydronephrosis. There is 8mm calculus posterior right renal pelvis. There are possible left side renal parapelvic cysts. Exam limited by lack of IV contrast. There is right-s ided hydroureter. I see no definite ureteral calculus. There is Lewis catheter in the urinary bladder . Bladder is empty. There appears to be some bladder wall thickening. There is no retroperitoneal jerome nopathy. There is no inguinal hernia. Appendix is filled with air and appears normal. Small bowel pattern is normal. There is no ascites or free air. There is no bowel obstruction. The lumbar vertebra have normal alignment. There is no compression fracture. Posterior elements are i ntact. The hip joints are intact. IMPRESSION: Mild subsegmental atelectasis at the lung bases. Bilateral hydronephrosis. Right side hydroureter. Ri ght renal calculus within the renal pelvis. Normal appendix. Hydronephrosis very similar to old CT sc an from 9 years ago. No significant renal atrophy. There is probably some urinary bladder wall thickening consistent with cystitis..
[2021-02-02] MEDS: SODIUM CHLORIDE 0.9% 1,000 ML IV SCH ×3 (04:22→13:43)
[2021-02-02] MEDS: ACETAMINOPHEN TAB 325 MG TAB PO PRN ×3 (05:53→17:30)
[2021-02-02 08:01] LABS: Basophils % (A) 0 %; Eosinophils # (A) 0.1 k/uL (0-0.7); Eosinophils % (A) 0 %; HCT 42.2 % (39.0-53.0); Lymphocytes # (A) 0.4 k/uL (1.0-4.8); Lymphocytes % (A) 3 %; MCH 30.4 pg (25.0-35.0); MCHC 33.2 g/dL (31.0-37.0); MCV 91.6 fL (80.0-100.0); Mean Platelet Volume 9.2; Monocytes # (A) 0.6 k/uL (0-1.0); Monocytes % (A) 4 %; Neutrophils # (A) 13.9 k/uL (1.3-7.7); Neutrophils % (A) 92 %; Platelet Count 134 k/uL (150-450); RBC 4.61 m/uL (4.30-5.90); RDW 13.6 % (11.5-15.5); WBC 15.1 k/uL (3.8-10.6)
[2021-02-02 08:24] LABS: Albumin 3.2 g/dL (3.5-5.0); Calcium 8.4 mg/dL (8.4-10.2); Potassium 3.4 mmol/L (3.5-5.1); Total Bilirubin 1.1 mg/dL (0.2-1.3); Total Protein 5.8 g/dL (6.3-8.2)
--- NOTE | 2021-02-02 13:59 | P.CNNES ---
History of Present Illness Consult date: 02/02/21 Requesting physician: Anand Payton Reason for Consult: brain ct results History of Present Illness: This is a 75-year-old gentleman medical history of hypertension, hyperlipidemia, cervical spondylosis s/p surgery about 5-6 years ago, prostate hyperplasia, remote tobacco use who presents emergency department on 02/01/2021 via EMS for confusion, hematuria and fever a day prior presenting to the hospital. The patient is accompanied by his who helps with some of the history. Neurology is consulted for abnormal CT of the head report. Patient had a CT of the head and it's reported as within the left frontal lobe there is an area of low attenuation extends to the cortex. An area of acute or recent ischemia in the differential diagnosis. Per the patient's the patient has been having fever the day prior to presenting to the hospital generalized weakness slow to respond and at times not responding, lethargic/fatigue and feeling warm to touch throughout. He also had several episodes of vomiting prior to presenting to the hospital as well. Patient required the nasal cannula upon arriving to the hosp [place] by paramedics. It is felt by primary team the patient had sepsis from urinary tract infection as well as acute hypoxic respiratory failure. Per the patient he denies of any focal weakness, visual disturbance, difficulty swallowing, difficulty getting his words out, any numbness or tingling. He denies of any further vomiting episodes at. He does have the nausea. He stated that he has a headache over the center and it's 6/10 but denies any photophobia or phonophobia. Denies any radiation. He denies any history of stroke, TIA or seizure in the past and the agrees. He socially drinks alcohol. Per the he drinks 3 cans of Diet Coke daily and since in the hospital he has not had any. Patient is on home medication of aspirin 81 and Lipitor 10 mg daily, Toprol, Flomax and omeprazole. Some other workup in the hospital consisted of: Initial vital signs his blood pressure 170/100, heart rate of 148, temperature of 103.7 Fahrenheit oral, rate of 128, respiratory of 22, pulse ox of 94% liters on 6 of nasal cannula. His initial white blood cells 15.1 and predominantly neutrophilic. Sodium is 139, creatinine is 1.24, glucose is 149, calcium is 9.7, AST of 25 and ALT of 21. The plasma lactic acid venous 3.6. Urine analysis that is suggestive of urinary tract infection Coronavirus patient are is not detected. Influenza A RNA and B PCR is not- detected. CT of the head is reported as within the left frontal lobe there is an area of low attenuation extends to the cortex. An area of acute or recent ischemia is in the differential doses. Correlate clinically. Degenerative and nonspecific white matter change. Remote microvascular ischemia in the differential diagn osis. No evidence of acute hemorrhage or midline shift. Change of mild sinusitis and mastoiditis. I personally reviewed the CT of the head and I agree there is low attenuation over the left frontal lobe. Review of Systems Review of system: The 12 point system was reviewed and apparent positive and negative per HPI. Past Medical History Past Medical History: GERD/Reflux, Hyperlipidemia, Hypertension, Osteoarthritis (OA), Prostate Disorder Additional Past Medical History / Comment(s): pos.cologuard,hemorrhoids History of Any Multi-Drug Resistant Organisms: None Reported Past Surgical History: Hernia Repair, Orthopedic Surgery Additional Past Surgical History / Comment(s): Hemorroidectomy, cataracts, ur eter repaired, lt shoulder surgery Past Anesthesia/Blood Transfusion Reactions: No Reported Reaction Past Psychological History: No Psychological Hx Reported Smoking Status: Never smoker Past Alcohol Use History: Occasional Additional Past Alcohol Use History / Comment(s): Quit smoking 30 yrs. Past Drug Use History: None Reported - Past Family History Mother Family Medical History: No Reported History Brother(s) Family Medical History: Cancer Sister(s) Family Medical History: Cancer Medications and Allergies Home Medications Medication Instructions Recorded Confirmed Type Aspirin 81 mg PO DAILY 09/17/17 02/01/21 History Omeprazole [PriLOSEC] 40 mg PO DAILY 09/17/17 02/01/21 History Tamsulosin HCl [Flomax] 0.4 mg PO DAILY 09/17/17 02/01/21 History Atorvastatin Calcium [Lipitor] 10 mg PO DAILY 02/01/21 02/01/21 History Lisinopril-Hctz 20-12.5 mg 1 tab PO DAILY 02/01/21 02/01/21 History [Zestoretic 20-12.5] Allergies Allergy/AdvReac Type Severity Reaction Status Date / Time No Known Allergies Allergy Verified 02/01/21 10:04 Physical Examination - Vital Signs Vital Signs: Vital Signs Temp Pulse Pulse Resp BP BP Pulse Ox 02/02/21 11:42 97.4 F L 83 18 176/84 97 02/02/21 08:03 96 02/02/21 07:23 99.6 F 97 02/02/21 02:00 100.7 F H 99 19 173/73 95 02/01/21 20:00 99.1 F 76 18 171/89 98 02/01/21 18:19 77 17 154/84 98 02/01/21 13:59 18 02/01/21 13:05 98.4 F 78 17 146/65 96 Intake and Output 02/01/21 02/02/21 02/02/21 22:59 06:59 14:59 Intake Total 360 Output Total 1000 950 Balance -1000 -590 Intake: Oral 360 Output: Urine 1000 950 Other: Voiding Method Indwelling Catheter Indwelling Catheter # Bowel Movements 1 Weight 102.058 kg GENERAL: The patient is lying in bed and is not in acute distress. CHEST: The heart rate is regular rate rhythm. No murmurs to auscultation. No carotid bruit bilaterally. LUNG: Clear to auscultation bilaterally no wheezing noted throughout. Not labored breathing. ABDOMEN/GI: Bowel sounds present in all 4 quadrants. No tenderness to palpation throughout. NEUROLOGICAL: Higher mental function: The patient is awake, alert, oriented to self, place. He knew the year but did not know the month. He is able to identify objects (pen and watch). Patient is following simple commands. No aphasia and no neglect. Cranial nerves: The pupils are round, equal and reactive to light and accommodation. Visual mendoza are full to confrontation throughout. Extraocular movement is intact no nystagmus is noted. Facial sensation is normal to touch throughout. The facial strength is normal throughout. Hearing is mildly decre ased bilaterally to hand rub. Tongue is midline and moved [id number] without any difficulty. No dysarthria is noted. Shoulder shrug is normal bilaterally. Motor: Gait is deferred. The strength is 5 over 5 throughout. Normal tone and bulk. Cerebellum: Normal finger to nose heel to laughlin bilaterally. Sensation: Sensation is normal to touch throughout. Reflexes (right/left): 2+ throughout except ankles are 1+ bilaterally. Plantars are downgoing bilaterally. Results - Laboratory Findings CBC and BMP: 02/02/21 07:48 02/02/21 07:48 Abnormal Lab Findings: Abnormal Labs 02/01/21 02/01/21 02/01/21 08:58 08:58 08:58 WBC 15.1 H Plt Count Neutrophils # Neutrophils # (Manual) 14.10 H Lymphocytes # Lymphocytes # (Manual) 0.60 L APTT 20.9 L Sodium Potassium Carbon Dioxide Glucose Plasma Lactic Acid Dami Total Protein Albumin Urine Protein 2+ H Urine Glucose (UA) 1+ H Urine Blood Large H Ur Leukocyte Esterase Large H Urine RBC >182 H Urine WBC >182 H Urine Bacteria Many H 02/01/21 02/01/21 02/02/21 08:58 08:58 07:48 WBC 15.1 H Plt Count 134 L Neutrophils # 13.9 H Neutrophils # (Manual) Lymphocytes # 0.4 L Lymphocytes # (Manual) APTT Sodium Potassium 3.2 L Carbon Dioxide 21 L Glucose 149 H Plasma Lactic Acid Dami 3.6 H* Total Protein Albumin Urine Protein Urine Glucose (UA) Urine Blood Ur Leukocyte Esterase Urine RBC Urine WBC Urine Bacteria 02/02/21 07:48 WBC Plt Count Neutrophils # Neutrophils # (Manual) Lymphocytes # Lymphocytes # (Manual) APTT Sodium 134 L Potassium 3.4 L Carbon Dioxide Glucose 113 H Plasma Lactic Acid Dami Total Protein 5.8 L Albumin 3.2 L Urine Protein Urine Glucose (UA) Urine Blood Ur Leukocyte Esterase Urine RBC Urine WBC Urine Bacteria Assessment and Plan Assessment: Hypoattenuation over the left frontal on CT of the head. On examination no focality noted: Rule out acute/subacute ischemia Septic encephalopathy due to urinary tract infection--mentation improving Acute urinary tract infection History of focal spondylosis status post surgery about 5-6 years ago History of hypertension and the during his hospital stay at patient has the slight elevated blood pressure History of hyperlipidemia Prostate hyperplasia Remote tobacco use Plan: I ordered MRI of the brain with and without urgent. The patient and his wanted to hold off on further testing of other stroke work-up until MRI Brain comes back and confirms stroke. If positive for stroke will obtain carotid duplex, 2-D echo, lipid panel, TSH level For now continue home medication of aspirin 81 mg daily his home dose and Lipitor 10 mg qhs. Every 4 neuro checks On cardiac monitoring Infection disease team is consulted We'll defer the rest of the medical management to primary team. Will defer use of DVT prophylaxis to the primary team. The plan is discussed with the patient and his . Thank you for the consultation. Shawn Bacon M.D. Neuro-hospitalist Time with Patient: Greater than 30
--- NOTE | 2021-02-02 15:39 | MR ---
EXAMINATION TYPE: MR brain wo/w con DATE OF EXAM: 02/02/2021 COMPARISON: CT brain from yesterday HISTORY: Abnormal CT left frontal, Rule out CVA. Altered mental status on admission yesterday. TECHNIQUE: Multiplanar, multisequence images of the brain and brainstem is performed without and with IV contras t, utilizing 10 mL intravenous Gadavist . FINDINGS: Diffusion weighted images demonstrate no evidence of a recent infarct or other diffusion ab normality. There is mild ventricular and sulcal prominence. There are multifocal areas of T2 hyperin tensity seen throughout the white matter bilaterally. Approximately 60-70 scattered lesions are seen. Lesions are nonspecific in appearance and distribution. Midline structures demonstrate normal morphology. The craniocervical junction appears within normal limits. Post contrast images demonstrate no abnormal enhancement. The dural venous sinuses appear pa tent. Some dependent fluid in the right maxillary sinus is redemonstrated. There is small mucous rete ntion cyst and/or polyp in the posterior left maxillary sinus. There is focal moderate mucosal thicke elvin anterior medial right maxillary sinus axial image 7 redemonstrated. Mild to moderate mucosal thi ckening involving ethmoid sinuses bilaterally is redemonstrated. The globes are intact bilaterally. P atchy opacification of the mastoid air cells left greater than right with involvement of the petrous apex bilaterally is noted. IMPRESSION: 1. No MRI evidence for recent infarct. 2. There is mild diffuse age-related cerebral atrophy and moderate to advanced chronic small vessel i schemic changes. 3. Acute on chronic paranasal sinus disease. Possible bilateral mastoiditis and petrous apicitis. Cor relate clinically.
[2021-02-02] MEDS: ASPIRIN 81 MG PO SCH (16:10)
--- NOTE | 2021-02-02 17:19 | PN ---
PROGRESS NOTE DATE OF SERVICE: 02/02/2021 This 75-year-old gentleman admitted with fever, weakness, vomiting and hematuria also had possible features of sepsis. The patient is on empiric antibiotics. White count is elevated to 15.1, sodium is 134, potassium 3.4, which is being corrected. Lactic acid is elevated. CT scan also showed some possible ischemic areas. Neurology has seen the patient and recommended MRI scan for the of the frontal lobe. On the MRI no infarct was noted. Mild diffuse age-related changes, not acute chronic paranasal infection was also noted. Past medical history reviewed. Reviewed. REVIEW OF SYSTEMS: CARDIOVASCULAR: No angina, palpitations. RESPIRATORY SYSTEM: As mentioned earlier. GI: As mentioned earlier. : No dysuria. NERVOUS SYSTEM: No numbness, weakness. CURRENT MEDICATIONS: Reviewed. They include Tylenol, aspirin, Lipitor, ceftriaxone, Narcan, Zofran. Other medications reviewed. PHYSICAL EXAMINATION: Patient is alert, oriented x3. Pulse 87, blood pressure 160/77, respiration 18, temperature 98.2, pulse ox 98% on room air. HEENT: Conjunctivae normal. NECK: No jugular venous distention. CARDIOVASCULAR: S1, S2 muffled. RESPIRATION: Breath sounds diminished at the bases. A few scattered rhonchi and crackles. ABDOMEN: Soft. Mild diffuse discomfort in the lower part of the abdomen. Lewis catheter with hematuria. NERVOUS SYSTEM: No focal deficit. LYMPHATICS: No lymph node palpable in neck, axillae or groin. JOINTS: No active deforming arthropathy. ASSESSMENT: 1. Acute urinary tract infection with possible sepsis, present on admission. 2. Change in mental status, acute metabolic encephalopathy secondary to sepsis. 3. No evidence of acute stroke on MRI. 4. Acute hypoxic respiratory failure, undetermined etiology, present on admission. 5. Increased white count. 6. Hypokalemia. 7. Hypnatremia. 8. Elevated lactic acid secondary to sepsis. 9. History of gastroesophageal reflux disease. 10.Hypertension. 11.Hyperlipidemia. 12.History of degenerative joint disease. 13.History of prostate disorder. 14.History of hemorrhoids. 15.Obesity with body mass index of 31.5. 16.FULL CODE. RECOMMENDATIONS AND DISCUSSION: I recommend to continue current medications, continue with symptomatic treatment. Continue the empiric antibiotics. Cultures are negative, as mentioned earlier. Otherwise, recommend repeat labs. Cut down the IV fluids. COVID-19 is negative. Influenza is also negative. Recommend consultation with Urology as well as Infectious Disease. Guarded prognosis because of multiple complex medical issues. Further recommendations to follow. MMODL / IJN: [id number] / MTDD
[2021-02-02] MEDS: ATORVASTATIN 10 MG TAB PO SCH (21:11)
[2021-02-03] MEDS: SODIUM CHLORIDE 0.9% 1,000 ML IV SCH ×2 (02:33→17:00)
[2021-02-03] MEDS: ACETAMINOPHEN TAB 325 MG TAB PO PRN (05:45)
[2021-02-03 07:48] LABS: African American GFR (CKD) >90 (>60 ml/min/1.73 sqM); Anion Gap 6 mmol/L; Blood Urea Nitrogen 11 mg/dL (9-20); Calcium 8.2 mg/dL (8.4-10.2); Carbon Dioxide 24 mmol/L (22-30); Chloride 107 mmol/L (98-107); Glucose 96 mg/dL (74-99); Non-African American GFR(CKD) 80 (>60 ml/min/1.73 sqM); Potassium 3.9 mmol/L (3.5-5.1); Sodium 137 mmol/L (137-145)
[2021-02-03] MEDS: ASPIRIN 81 MG PO SCH (09:02)
[2021-02-03] MEDS: TAMSULOSIN 0.4 MG CAP.ER.24H PO SCH (09:02)
[2021-02-03] MEDS: LISINOPRIL-HCTZ 20-12.5 MG 1 EACH TAB PO SCH (09:02)
--- NOTE | 2021-02-03 09:25 | P.PN ---
Subjective Progress Note Date: 02/03/21 Patient seen at bedside and he denies of any focal weakness, numbness, any visual disturbance. Denies of any nausea or vomiting. He states that he is doing better. Objective - Vital Signs Vital signs: Vital Signs Temp 98.2 F 02/03/21 08:00 Pulse 74 02/03/21 08:00 Resp 16 02/03/21 08:00 BP 196/90 02/03/21 08:00 Pulse Ox 94 L 02/03/21 08:00 Intake & Output 02/02/21 02/03/21 02/03/21 18:59 06:59 18:59 Intake Total 720 240 Output Total 1700 1950 Balance -980 -1710 Intake: Oral 720 240 Output: Urine 1700 1950 Other: Voiding Method Indwelling Catheter Indwelling Catheter # Voids 3 - Exam GENERAL: The patient is lying in bed and is not in acute distress. NEUROLOGICAL: Higher mental function: The patient is awake, alert, oriented to self, place. He knew the year but did not know the month. He is able to identify objects (pen and watch). Patient is following simple commands. No aphasia and no neglect. Cranial nerves: The pupils are round, equal and reactive to light and accommodation. Visual mendoza are full to confrontation throughout. Extraocular movement is intact no nystagmus is noted. Facial sensation is normal to touch throughout. The facial strength is normal throughout. Hearing is mildly decreased bilaterally to hand rub. Tongue is midline and moved [id number] without any difficulty. No dysarthria is noted. Shoulder shrug is normal bilaterally. Motor: Gait is deferred. The strength is 5 over 5 throughout. Normal tone and bulk. Cerebellum: Normal finger to nose heel to laughlin bilaterally. Sensation: Sensation is normal to touch throughout. Reflexes (right/left): 2+ throughout except ankles are 1+ bilaterally. Plantars are downgoing bilaterally. WORK-UP: CT of the head is reported as within the left frontal lobe there is an area of low attenuation extends to the cortex. An area of acute or recent ischemia is in the differential doses. Correlate clinically. Degenerative and nonspecific white matter change. Remote microvascular ischemia in the differential janis gnosis. No evidence of acute hemorrhage or midline shift. Change of mild sinusitis and mastoiditis. I personally reviewed the CT of the head and I agree there is low attenuation over the left frontal lobe. MRI the brain with and without is reported as no MRI evidence for recent infarct. There is a mild diffuse age-related cerebral atrophy and moderate to advanced chronic small vessel ischemic changes. Acute on chronic paranasal sinus disease. Possible bilateral mastoiditis and at petrous apicitis. Correlate clinically. I personally reviewed the MRI of the brain and I do agree there is no acute or subacute ischemic stroke seen. - Labs CBC & Chem 7: 02/03/21 06:16 02/03/21 06:16 Labs: Abnormal Lab Results - Last 24 Hours (Table) 02/03/21 Range/Units 06:16 Calcium 8.2 L (8.4-10.2) mg/dL Microbiology - Last 24 Hours (Table) 02/01/21 08:58 Urine Culture - Preliminary Urine,Catheterized Gram Neg Bacilli 02/01/21 08:45 Blood Culture Gram Stain - Preliminary Blood 02/01/21 09:00 Blood Culture Gram Stain - Preliminary Blood Assessment and Plan Assessment: Septic encephalopathy due to urinary tract infection--mentation improved Hypoattenuation over the left frontal on CT of the head but normal on MRI Brain w/ and w/o (No acute or subacute ischemia). Acute urinary tract infection History of focal spondylosis status post surgery about 5-6 years ago History of hypertension and the during his hospital stay at patient has the slight elevated blood pressure History of hyperlipidemia Prostate hyperplasia Remote tobacco use Plan: No stroke workup needed since on the MRI there is no stroke and the patient does not have any symptoms of stroke. For now continue home medication of aspirin 81 mg daily his home dose and Lipitor 10 mg qhs. On Every 4 neuro checks On cardiac monitoring Infection disease team is consulted We'll defer the rest of the medical management to primary team. Will defer use of DVT prophylaxis to the primary team. The plan is discussed with the patient and his nurse. There is no further neurological work-up. Neurology will sign off. Please reconsult if needed. Shawn Bacon M.D. Neuro-hospitalist Time with Patient: Less than 30
[2021-02-03 09:29] LABS: Basophils # (A) 0.02 X 10*3/uL (0.00-0.10); Basophils % (A) 0.3 %; Eosinophils # (A) 0.14 X 10*3/uL (0.04-0.35); HCT 40.6 % (39.6-50.0); HGB 13.4 g/dL (13.0-17.0); Lymphocytes # (A) 0.49 X 10*3/uL (0.90-5.00); Lymphocytes % (A) 6.9 %; Mean Platelet Volume 12.4 fL (9.5-12.2); Monocytes # (A) 0.43 X 10*3/uL (0.20-1.00); Monocytes % (A) 6.1 %; Neutrophils # (A) 5.96 X 10*3/uL (1.80-7.70); Neutrophils % (A) 84.4 %; Platelet Count 117 X 10*3/uL (140-440); RBC 4.46 X 10*6/uL (4.40-5.60); RDW 14.1 % (11.5-14.5); WBC 7.06 X 10*3/uL (4.50-10.00)
--- NOTE | 2021-02-03 15:01 | P.GSCN ---
History of Present Illness Consult date: 02/03/21 History of present illness: 75 yo male admitted with UTI and gross hematuria, Urine culture showing Gram negative bacilli. He indicated he had 2 day hx of gross hematuria and urinary frequency. Denies any previous hx of gross hematuria or previous hx of UTI. Denies any voiding issues at baseline. Had CT showing bilateral hydronephrosis and right sided renal stone, of note hydro is stable compared to CT from 2012 per radiology report. His hematuria has resolved now and his creat is stable at 0.9 Review of Systems - Constitutional Reports chills, Denies fever - Cardiovascular Denies chest pain, Denies shortness of breath - Respiratory Denies cough, Denies 7 - Gastrointestinal Reports as per HPI - Genitourinary Reports hematuria - Integumentary Denies rash, Denies unusual bruising - Neurological Denies headaches, Denies syncope Past Medical History Past Medical History: GERD/Reflux, Hyperlipidemia, Hypertension, Osteoarthritis (OA), Prostate Disorder Additional Past Medical History / Comment(s): pos.cologuard,hemorrhoids History of Any Multi-Drug Resistant Organisms: None Reported Past Surgical History: Hernia Repair, Orthopedic Surgery Additional Past Surgical History / Comment(s): Hemorroidectomy, cataracts, ureter repaired, lt shoulder surgery Past Anesthesia/Blood Transfusion Reactions: No Reported Reaction Past Psychological History: No Psychological Hx Reported Smoking Status: Never smoker Past Alcohol Use History: Occasional Additional Past Alcohol Use History / Comment(s): Quit smoking 30 yrs. Past Drug Use History: None Reported - Past Family History Mother Family Medical History: No Reported History Brother(s) Family Medical History: Cancer Sister(s) Family Medical History: Cancer Medications and Allergies Home Medications Medication Instructions Recorded Confirmed Type Aspirin 81 mg PO DAILY 09/17/17 02/01/21 History Omeprazole [PriLOSEC] 40 mg PO DAILY 09/17/17 02/01/21 History Tamsulosin HCl [Flomax] 0.4 mg PO DAILY 09/17/17 02/01/21 History Atorvastatin Calcium [Lipitor] 10 mg PO DAILY 02/01/21 02/01/21 History Lisinopril-Hctz 20-12.5 mg 1 tab PO DAILY 02/01/21 02/01/21 History [Zestoretic 20-12.5] Allergies Allergy/AdvReac Type Severity Reaction Status Date / Time No Known Allergies Allergy Verified 02/01/21 10:04 Surgical - Exam Vital Signs Temp Pulse Resp BP Pulse Ox 103.7 F H 128 H 22 170/100 94 L 02/01/21 08:32 02/01/21 08:32 02/01/21 08:32 02/01/21 08:32 02/01/21 08:32 - General well developed, well nourished, no distress, no pain - Eyes PERRL, normal ocular movement - ENT normal nares, normal mucosa - Respiratory normal expansion, normal respiratory effort - Abdomen Abdomen: soft, non tender - Psychiatric oriented to time, oriented to person, oriented to place Results - Labs 02/03/21 06:16 02/03/21 06:16 Abnormal Lab Results - Last 24 Hours (Table) 02/03/21 02/03/21 Range/Units 06:16 06:16 Plt Count 117 L (140-440) X 10*3/uL MPV 12.4 H (9.5-12.2) fL Lymphocytes # 0.49 L (0.90-5.00) X 10*3/uL Calcium 8.2 L (8.4-10.2) mg/dL Microbiology - Last 24 Hours (Table) 02/01/21 08:58 Urine Culture - Preliminary Urine,Catheterized Gram Neg Bacilli 02/01/21 08:45 Blood Culture Gram Stain - Preliminary Blood 02/01/21 09:00 Blood Culture Gram Stain - Preliminary Blood Diabetes panel 02/03/21 Range/Units 06:16 Sodium 137 (137-145) mmol/L Potassium 3.9 (3.5-5.1) mmol/L Chloride 107 (98-107) mmol/L Carbon Dioxide 24 (22-30) mmol/L BUN 11 (9-20) mg/dL Creatinine 0.92 (0.66-1.25) mg/dL Glucose 96 (74-99) mg/dL Calcium 8.2 L (8.4-10.2) mg/dL Calcium panel 02/03/21 Range/Units 06:16 Calcium 8.2 L (8.4-10.2) mg/dL Pituitary panel 02/03/21 Range/Units 06:16 Sodium 137 (137-145) mmol/L Potassium 3.9 (3.5-5.1) mmol/L Chloride 107 (98-107) mmol/L Carbon Dioxide 24 (22-30) mmol/L BUN 11 (9-20) mg/dL Creatinine 0.92 (0.66-1.25) mg/dL Glucose 96 (74-99) mg/dL Calcium 8.2 L (8.4-10.2) mg/dL Adrenal panel 02/03/21 Range/Units 06:16 Sodium 137 (137-145) mmol/L Potassium 3.9 (3.5-5.1) mmol/L Chloride 107 (98-107) mmol/L Carbon Dioxide 24 (22-30) mmol/L BUN 11 (9-20) mg/dL Creatinine 0.92 (0.66-1.25) mg/dL Glucose 96 (74-99) mg/dL Calcium 8.2 L (8.4-10.2) mg/dL Assessment and Plan Assessment: 75 yo male admitted with UTI and gross hematuria, Heamturia now resolved. CT showed chronic hydronephrosis and non-obstructive stones -TOV prior to discharge -F/U as an outpatient, will repeat UA, if persistent hematuria then will need a cystoscopy
[2021-02-03] MEDS: PANTOPRAZOLE 40 MG TABLET PO SCH (17:17)
--- NOTE | 2021-02-03 18:05 | PN ---
PROGRESS NOTE DATE OF SERVICE: 02/03/2021 REASON FOR FOLLOWUP: Gram-negative bacteremia, complicated UTI. INTERVAL HISTORY: Patient is afebrile. The patient is breathing comfortably, feeling slightly better. Denies any chest pain, shortness of breath or cough. No abdominal pain no diarrhea. PHYSICAL EXAMINATION: Blood pressure 167/79 with a pulse of 75, temperature of 98.8. He is 96% on room air. General description is an elderly male lying in bed in no distress. Respiratory system unlabored breathing, clear to auscultation anteriorly. Heart S1, S2. Regular rate and rhythm. Abdomen soft. LABS: Hemoglobin is 13.4, white count 7.06, creatinine 0.92. Urine with Enterobacter. Blood cultures currently pending. DIAGNOSTIC IMPRESSION AND PLAN: Patient with Enterobacter bacteremia source is complicated UTI. CT of abdomen and pelvis did show right sided hydronephrosis. No change from a CT prior to that. The patient to continue Rocephin pending clinical response. Continue with oral antibiotics. Continue supportive care. MMODL / IJN: [id number] /
[2021-02-03] MEDS: ATORVASTATIN 10 MG TAB PO SCH (21:43)
--- NOTE | 2021-02-04 08:48 | P.CONS ---
History of Present Illness - Reason for Consult Consult date: 02/02/21 Sepsis Requesting physician: Anand Payton - Chief Complaint Fever and weakness x one day - History of Present Illness History of present illness : Patient is 75-year-old male with a past medical history significant for right ureteral surgery for a kinked ureter al most 9 to 10 years ago patient has been brought to the hospital yesterday morning for evaluation of confusion hematuria fever patient symptom has been going on for a day before presentation to the hospital patient denies having any suprapubic or flank pain patient apparently did have multiple episodes of vomiting and did have a fever of 102 degree form height patient started having dysuria and hematuria night before presentation to the hospital no diarrhea on presentation to the hospital patient did have a fever of 103 degrees form height did have a tachycardia heart rate of 99 with a white count of 15 point 1 repeat this morning is 15.1 as well creatinine was normal lactic acid was elevated did have a positive UA mehta PCR was negative patient now showing a positive blood culture with gram-negative bacilli that has prompted this infectious disease consultation patient did have a chest x-ray cardiomegaly patient did have a CT of abdominal pelvis bilateral hydronephrosis right-sided hydroureter however similar finding compared to old CT scan from 9 years infectious disease was consulted for further management of antibiotic therapy Review of system: CONSTITUTIONAL: Positive for weakness along with the fever. EYES: No complaint. ENT: No complaint. RESPIRATORY: No complaint. CARDIOVASCULAR: No complaint. GENITOURINARY: As per history of present illness GASTROINTESTINAL: As per history of present illness. MUSCULOSKELETAL: No complaint. INTEGUMENTARY: No complaint. PSYCHOLOGIC: No complaint. ENDOCRINE: No complaint. NEUROLOGIC: No complaint. Past medical history : Reviewed, documented below Past surgical history : Reviewed, documented below Social history: Reviewed, documented below Medications: Reviewed, as documented below EXAMINATION: Vital sigans= Reviewed and documented below GENERAL DESCRIPTION: Elderly male lying in bed, no distress. No tachypnea or accessory muscle of respiration use. HEENT: Shows Pallor , no scleral icterus. Oral mucous membrane is dry. NECK: Trachea central, no thyromegaly. LUNGS: Unlabored breathing. Clear to auscultation anteriorly. No wheeze or crackle. HEART: S1, S2, regular rate and rhythm. ABDOMEN: Soft, no tenderness , guarding or rigidity EXTREMITIES: No edema of feet. SKIN: No rash, no masses palpable. NEUROLOGICAL: The patient is awake, alert, oriented x3, mood and affect normal. LABS AND RADIOLOGY: Reviewed results see below Assessment : Patient presented to hospital with sepsis in this patient who did have fever tachycardia elevated white count and elevated lactic acid secondary to urinary source in this patient who did have a significantly positive UA patient did have a normal CT with evidence of right-sided hydronephrosis however this has not changed over the last 9 years we will need to cover for the enteric gram-negative to be the likely pathogen Plan: 1-Rocephin 2 g IV every 24 hours continue 2-gentle IV fluid We will follow on clinical condition and cultures to further adjust medication if needed Thank you for this consultation we will follow the patient along with you Review of Systems Positive point has been mentioned in the HPI rest of the systems are negative Past Medical History Past Medical History: GERD/Reflux, Hyperlipidemia, Hypertension, Osteoarthritis (OA), Prostate Disorder Additional Past Medical History / Comment(s): pos.[email or web address],hemorrhoids History of Any Multi-Drug Resistant Organisms: None Reported Past Surgical History: Hernia Repair, Orthopedic Surgery Additional Past Surgical History / Comment(s): Hemorroidectomy, cataracts, ureter repaired, lt shoulder surgery Past Anesthesia/Blood Transfusion Reactions: No Reported Reaction Past Psychological History: No Psychological Hx Reported Smoking Status: Never smoker Past Alcohol Use History: Occasional Additional Past Alcohol Use History / Comment(s): Quit smoking 30 yrs. Past Drug Use History: None Reported - Past Family History Mother Family Medical History: No Reported History Brother(s) Family Medical History: Cancer Sister(s) Family Medical History: Cancer Medications and Allergies Home Medications Medication Instructions Recorded Confirmed Type Aspirin 81 mg PO DAILY 09/17/17 02/01/21 History Omeprazole [PriLOSEC] 40 mg PO DAILY 09/17/17 02/01/21 History Tamsulosin HCl [Flomax] 0.4 mg PO DAILY 09/17/17 02/01/21 History Atorvastatin Calcium [Lipitor] 10 mg PO DAILY 02/01/21 02/01/21 History Lisinopril-Hctz 20-12.5 mg 1 tab PO DAILY 02/01/21 02/01/21 History [Zestoretic 20-12.5] Allergies Allergy/AdvReac Type Severity Reaction Status Date / Time No Known Allergies Allergy Verified 02/01/21 10:04 Physical Exam Vitals: Vital Signs Temp Pulse Pulse Resp BP BP Pulse Ox 02/02/21 14:00 98.2 F 87 18 166/77 98 02/02/21 11:42 97.4 F L 83 18 176/84 97 02/02/21 08:03 96 02/02/21 07:23 99.6 F 97 02/02/21 02:00 100.7 F H 99 19 173/73 95 02/01/21 20:00 99.1 F 76 18 171/89 98 02/01/21 18:19 77 17 154/84 98 Intake and Output 02/02/21 02/02/21 02/02/21 06:59 14:59 22:59 Intake Total 360 360 Output Total 1000 1700 Balance -1000 -1340 360 Intake: Oral 360 360 Output: Urine 1000 1700 Other: Voiding Method Indwelling Catheter # Voids 3 # Bowel Movements 1 GENERAL DESCRIPTION: Elderly male lying in bed, no distress. No tachypnea or accessory muscle of respiration use. HEENT: Shows Pallor , no scleral icterus. Oral mucous membrane is dry. No phar yngeal erythema or thrush NECK: Trachea central, no thyromegaly. LUNGS: Unlabored breathing. Clear to auscultation anteriorly. No wheeze or crackle. HEART: S1, S2, regular rate and rhythm. No loud murmur ABDOMEN: Soft, no tenderness , guarding or rigidity, no organomegaly EXTREMITIES: No edema of feet. SKIN: No rash, no masses palpable. NEUROLOGICAL: The patient is awake, alert, oriented x3, mood and affect normal. Results CBC & Chem 7: 02/03/21 06:16 02/03/21 06:16 Labs: Abnormal Lab Results - Last 24 Hours (Table) 02/02/21 02/02/21 Range/Units 07:48 07:48 WBC 15.1 H (3.8-10.6) k/uL Plt Count 134 L (150-450) k/uL Neutrophils # 13.9 H (1.3-7.7) k/uL Lymphocytes # 0.4 L (1.0-4.8) k/uL Sodium 134 L (137-145) mmol/L Potassium 3.4 L (3.5-5.1) mmol/L Glucose 113 H (74-99) mg/dL Total Protein 5.8 L (6.3-8.2) g/dL Albumin 3.2 L (3.5-5.0) g/dL Microbiology - Last 24 Hours (Table) 02/01/21 08:45 Blood Culture Gram Stain - Preliminary Blood 02/01/21 09:00 Blood Culture Gram Stain - Preliminary Blood 02/01/21 09:00 Blood Culture - Final Blood 02/01/21 08:45 Blood Culture - Final Blood 02/01/21 08:58 Urine Culture - Preliminary Urine,Catheterized
[2021-02-04] MEDS: TAMSULOSIN 0.4 MG CAP.ER.24H PO SCH (09:16)
[2021-02-04] MEDS: PANTOPRAZOLE 40 MG TABLET PO SCH (09:16)
[2021-02-04] MEDS: ASPIRIN 81 MG PO SCH (09:16)
[2021-02-04] MEDS: LISINOPRIL-HCTZ 20-12.5 MG 1 EACH TAB PO SCH (09:16)
[2021-02-04] MEDS: SODIUM CHLORIDE 0.9% 1,000 ML IV SCH (09:54)
--- NOTE | 2021-02-04 10:26 | P.PN ---
Subjective Progress Note Date: 02/03/21 This is a 75 year old male who was admitted with fever, weakness, and features of possible sepsis and being closely monitored. Antibiotics initiated and maintained on IV ceftriaxone. urine cultures showing enterobacter and gram negative bacilli. Blood cultures positive for gram negative and infectious di sease consulted. Urology consulted as well and currently pending. Continue with indwelling sage catheter. Blood pressure elevated and will decrease IV fluids and resume home medications. Patient denies chest pain. Patient is afebrile. Labs: WBC 7.06, hgb 13.4, sodium is 137, potassium 3.9, bun 11, creatinine is 0.92 Review of systems: Constitutional: reports of feeling fatigued, no fever, or chills Cardiovascular: No reports of chest pain or palpitations Respiratory: no reports of shortness of breath GI: No reports of nausea, vomiting, or diarrhea : No reports of dysuria or retention, indwelling sage catheter Neurovascular: Reports generalized weakness, but states feels better than admission All medications have been reviewed Active Medications Acetaminophen (Acetaminophen Tab 325 Mg Tab) 650 mg PO Q6HR PRN PRN Reason: Mild Pain or Fever > 100.5 Last Admin: 02/03/21 05:45 Dose: 650 mg Documented by: Aspirin (Aspirin 81 Mg) 81 mg PO DAILY [facility] Last Admin: 02/04/21 09:16 Dose: 81 mg Documented by: Atorvastatin Calcium (Atorvastatin 10 Mg Tab) 10 mg PO HS [facility] Last Admin: 02/03/21 21:43 Dose: 10 mg Documented by: Lisinopril/HCTZ (Lisinopril-Hctz 20-12.5 Mg 1 Each Tab) 1 each PO DAILY [facility] Last Admin: 02/04/21 09:16 Dose: 1 each Documented by: Sodium Chloride (Saline 0.9%) 1,000 mls @ 60 mls/hr IV .[id number] [facility] Last Admin: 02/04/21 09:54 Dose: 60 mls/hr Documented by: Ceftriaxone Sodium 2 gm/ (Sodium Chloride) 50 mls @ 100 mls/hr IVPB Q24HR [facility] Last Admin: 02/04/21 09:16 Dose: 100 mls/hr Documented by: Naloxone HCl (Naloxone 0.4 Mg/Ml 1 Ml Vial) 0.2 mg IV Q2M PRN PRN Reason: Opioid Reversal Ondansetron HCl (Ondansetron 4 Mg/2 Ml Vial) 4 mg IVP Q8HR PRN PRN Reason: Nausea And Vomiting Pantoprazole Sodium (Pantoprazole 40 Mg Tablet) 40 mg PO AC-BRKFST [facility] Last Admin: 02/04/21 09:16 Dose: 40 mg Documented by: Tamsulosin HCl (Tamsulosin 0.4 Mg Cap.Er.24h) 0.4 mg PO DAILY [facility] Last Admin: 02/04/21 09:16 Dose: 0.4 mg Documented by: PHysical Exam: GENERAL: The patient is alert and oriented x3, not in any acute distress. Well developed, well nourished. Temp is 98.2, pulse is 74, resp is 16, blood pressure is 196/90, 02 is 94% on room air HEENT: Pupils are round and equally reacting to light. EOMI. No scleral icterus. No conjunctival pallor. Normocephalic, atraumatic. No pharyngeal erythema. No thyromegaly. CARDIOVASCULAR: S1 and S2 muffled PULMONARY: Diminished breath sounds bilaterally with no wheezing or rhonchi noted. ABDOMEN: Soft, obese, nontender, nondistended, normoactive bowel sounds. No palpable organomegaly. MUSCULOSKELETAL: No joint swelling or deformity. EXTREMITIES: No cyanosis, clubbing, or edema noted NEUROLOGICAL: Gross neurological examination did not reveal any focal deficits. SKIN: No rashes. no petechiae. Assessment and Plan: Acute urinary tract infection, with possible sepsis, present on admission bacteremia with gram negative bacilli, present on admission Change in mental status, acute metabolic encephalopathy, secondary to sepsis, improved NO evidence of acute stroke on MRI Increased white count hypokalemia hyponatremia elevated lactic acid secondary to sepsis GERD DJD hypertension hyperlipidemia HIstory of prostate disorder History of hemorrhoids Obesity with a BMI of 31.4 Full code Plan: Recommend to continue with current medications and symptomatic treatment. Continue with antibiotics in the form of ceftriaxone. ID consulted and following and urology consulted for hydronephrosis and complicated UTI. Patient urine is positive for enterobacter cloacae and gram negative bacilli noted in the blood cultures as well. Repeat blood cultures pending. Encouraged oral intake and increase in activity. PT/OT to evaluate. Family at the bedside and questions and concerns were answered. Due to multiple complex medical issues, prognosis is gu arded. Objective - Vital Signs Vital signs: Vital Signs Temp 98.2 F 02/03/21 08:00 Pulse 74 02/03/21 08:00 Resp 16 02/03/21 08:00 BP 196/90 02/03/21 08:00 Pulse Ox 94 L 02/03/21 08:00 Intake & Output 02/02/21 02/03/21 02/03/21 18:59 06:59 18:59 Intake Total 720 240 Output Total 1700 1950 Balance -980 -1710 Intake: Oral 720 240 Output: Urine 1700 1950 Other: Voiding Method Indwelling Catheter Indwelling Catheter Indwelling Catheter # Voids 3 - Labs CBC & Chem 7: 02/03/21 06:16 02/03/21 06:16 Labs: Abnormal Lab Results - Last 24 Hours (Table) 02/03/21 02/03/21 Range/Units 06:16 06:16 Plt Count 117 L (140-440) X 10*3/uL MPV 12.4 H (9.5-12.2) fL Lymphocytes # 0.49 L (0.90-5.00) X 10*3/uL Calcium 8.2 L (8.4-10.2) mg/dL Microbiology - Last 24 Hours (Table) 02/01/21 08:58 Urine Culture - Preliminary Urine,Catheterized Gram Neg Bacilli 02/01/21 08:45 Blood Culture Gram Stain - Preliminary Blood 02/01/21 09:00 Blood Culture Gram Stain - Preliminary Blood
[2021-02-04 11:48] LABS: African American GFR (CKD) >90 (>60 ml/min/1.73 sqM); Anion Gap 10 mmol/L; Blood Urea Nitrogen 12 mg/dL (9-20); Calcium 8.1 mg/dL (8.4-10.2); Carbon Dioxide 24 mmol/L (22-30); Chloride 104 mmol/L (98-107); Glucose 162 mg/dL (74-99); Non-African American GFR(CKD) 81 (>60 ml/min/1.73 sqM); Potassium 3.6 mmol/L (3.5-5.1); Sodium 138 mmol/L (137-145)
[2021-02-04 12:06] LABS: Basophils % (A) 0 %; Eosinophils # (A) 0.1 k/uL (0-0.7); Eosinophils % (A) 2 %; HCT 41.9 % (39.0-53.0); HGB 14.3 gm/dL (13.0-17.5); Lymphocytes # (A) 0.7 k/uL (1.0-4.8); Lymphocytes % (A) 13 %; MCH 30.8 pg (25.0-35.0); MCHC 34.1 g/dL (31.0-37.0); MCV 90.3 fL (80.0-100.0); Monocytes # (A) 0.3 k/uL (0-1.0); Monocytes % (A) 5 %; Neutrophils # (A) 3.8 k/uL (1.3-7.7); Neutrophils % (A) 75 %; Platelet Count 153 k/uL (150-450); RBC 4.64 m/uL (4.30-5.90); RDW 14.1 % (11.5-15.5)
[2021-02-04] MEDS: amLODIPine 10 MG TAB PO SCH (16:13)
--- NOTE | 2021-02-04 18:03 | PN ---
PROGRESS NOTE DATE OF SERVICE: 02/04/2021 REASON FOR FOLLOWUP: Enterobacter bacteremia secondary to complicated UTI. INTERVAL HISTORY: The patient is afebrile. The patient is feeling better, breathing comfortably. The patient patient denies having any chest pain, shortness of breath or cough. No abdominal pain or diarrhea. PHYSICAL EXAMINATION: Blood pressure is 116/68 with a pulse of 90, temperature 98.8. He is 96% on room air. General description is an elderly male lying in bed in no distress. RESPIRATORY SYSTEM: Unlabored breathing. Clear to auscultation anteriorly. HEART: S1, S2. Regular rate and rhythm. ABDOMEN: Soft. No tenderness. EXTREMITIES: No edema of the feet. LABS: Hemoglobin is 14, white count 5.0. Creatinine 0.91. DIAGNOSTIC IMPRESSION AND PLAN: Patient with Enterobacter bacteremia secondary to complicated urinary tract infection. The patient has overall clinical response to the Rocephin; to continue. Finish therapy with oral Cipro and close outpatient followup. Continue supportive care. at the bed MMODL / IJN: [id number] /
[2021-02-04] MEDS: ATORVASTATIN 10 MG TAB PO SCH (21:45)
--- NOTE | 2021-02-04 22:33 | PN ---
PROGRESS NOTE DATE OF SERVICE: 02/04/2021 This 75-year-old gentleman admitted with UTI and sepsis is being closely monitored. Patient had Enterobacter cloacae grown from the culture repeatedly. No chest pain. No palpitations. No fever. PHYSICAL EXAMINATION: Alert and oriented x3. Pulse is 90, blood pressure 169/60, respirations 17, temperature 98.2, pulse ox 96% on room air. HEENT: Conjunctivae normal. NECK: No jugular venous distention. CARDIOVASCULAR: S1, S2 muffled. RESPIRATION: Breath sounds diminished at the bases. A few scattered rhonchi. ABDOMEN: Soft. NERVOUS SYSTEM: No focal deficit. LABS: CBC within normal limits and calcium is 8.1. ASSESSMENT: 1. Acute urinary tract infection with sepsis, present on admission, with Enterobacter cloacae. 2. Change in mental status, acute metabolic encephalopathy secondary to sepsis, improved. 3. No evidence of acute stroke on MRI. 4. Bilateral hydronephrosis, right-sided hydroureter, and right renal calculus. 5. Increased white count. 6. Hypokalemia. 7. Hyponatremia. 8. Elevated lactic acid secondary to sepsis. 9. Gastroesophageal reflux disease. 10.Degenerative joint disease. 11.Hypertension. 12.Hyperlipidemia. 13.History of prostate disorder. 14.History of hemorrhoids. 15.Obesity with body mass index of . 16.FULL CODE. RECOMMENDATIONS AND DISCUSSION: I recommend to continue current medications, continue with symptomatic treatment. Otherwise, continue the antibiotics. Follow the cultures. Will continue to monitor. Closely follow with Urology and multiple consultants. Further recommendations to follow. MMODL / IJN: [id number] / FILIPE
[2021-02-05] MEDS: SODIUM CHLORIDE 0.9% 1,000 ML IV SCH ×2 (00:12→08:28)
[2021-02-05] MEDS: ASPIRIN 81 MG PO SCH (08:27)
[2021-02-05] MEDS: LISINOPRIL-HCTZ 20-12.5 MG 1 EACH TAB PO SCH (08:27)
[2021-02-05] MEDS: TAMSULOSIN 0.4 MG CAP.ER.24H PO SCH (08:28)
[2021-02-05] MEDS: PANTOPRAZOLE 40 MG TABLET PO SCH (08:28)
[2021-02-05] MEDS: amLODIPine 10 MG TAB PO SCH (08:28)
--- NOTE | 2021-02-05 17:27 | PN ---
PROGRESS NOTE DATE OF SERVICE: 02/05/2021 This 75-year-old gentleman who was admitted with acute UTI and sepsis has Enterobacter cloacae grown from the cultures. The most recent blood culture on 02/04 is negative at this time. No chest pain. No palpitations. No fever. The patient has a Lewis catheter draining minimally cloudy urine. PHYSICAL EXAMINATION: Alert and oriented x3. Pulse 80, blood pressure 149/72, respiration 18, temperature 98.1, pulse ox 96% on room air. HEENT: Conjunctivae normal. NECK: No jugular venous distention. CARDIOVASCULAR: S1, S2 muffled. RESPIRATION: Breath sounds diminished at the bases. A few scattered rhonchi. ABDOMEN: Soft, non-tender. No mass palpable. LEGS: No edema. No swelling. NERVOUS SYSTEM: No focal deficit. LABS: WBC 5, hemoglobin 14.3, sodium n. Other labs are noted. ASSESSMENT: 1. Acute urinary tract infection with sepsis, present on admission, with Enterobacter cloacae. 2. Change in mental status, acute metabolic encephalopathy with sepsis, present on admission, improving. 3. No evidence of acute stroke on MRI. 4. Bilateral hydronephrosis, right-sided hydroureter and right renal calculus on the CT scan. 5. Increased white count. 6. Hypokalemia. 7. Hyponatremia. 8. Elevated lactic acid secondary to sepsis. 9. Gastroesophageal reflux disease. 10.Degenerative joint disease. 11.Hypertension. 12.Hyperlipidemia. 13.History of prostate disorder. 14.History of hemorrhoids. 15.Obesity with body mass index of 31.4. 16.FULL CODE. RECOMMENDATIONS AND DISCUSSION: I recommend to continue current medications, continue with symptomatic treatment. Continue with antibiotics. Monitor closely. Closely follow with Urology and Infectious Disease. Guarded prognosis. Further recommendations to follow. Possibly home in the next 24-48 hours. MMODL / IJN: [id number] / MTDNando
[2021-02-05] MEDS: ATORVASTATIN 10 MG TAB PO SCH (22:35)
--- NOTE | 2021-02-05 23:38 | PN ---
PROGRESS NOTE DATE OF SERVICE: 02/05/2021 REASON FOR FOLLOWUP: Enterobacter complicated UTI and bacteremia. INTERVAL HISTORY: Patient is afebrile. The patient is breathing comfortably. The patient denies having any chest pain, shortness of breath or cough. No nausea, vomiting, no abdominal pain, diarrhea. Urinary symptoms have improved. PHYSICAL EXAMINATION: Blood pressure is 172/80 with a pulse of 69, temperature 98.2. He is 94% on room air. General description is an elderly male lying in bed in no distress. Respiratory system: Unlabored breathing, clear to auscultation anteriorly. Heart S1, S2. Regular rate and rhythm. Abdomen soft, no tenderness. Extremities: No edema of the feet. LABS: Hemoglobin is 14.1, white count of 5.7, creatinine 0.91. DIAGNOSTIC IMPRESSION AND PLAN: Patient with Enterobacter complicated urinary tract infection with bacteremia. Repeat blood cultures remain negative. Clinical improvement with Rocephin. Finish therapy with oral Cipro for 10 days and close outpatient followup. MMODL / IJN: [id number] /
[2021-02-06 07:12] VITALS: BP 164/87; PULSE 79; RESP 16; TEMP 98.1
[2021-02-06] MEDS: SODIUM CHLORIDE 0.9% 1,000 ML IV SCH (07:57)
[2021-02-06] MEDS: ASPIRIN 81 MG PO SCH (07:58)
[2021-02-06] MEDS: amLODIPine 10 MG TAB PO SCH (07:58)
[2021-02-06] MEDS: TAMSULOSIN 0.4 MG CAP.ER.24H PO SCH (07:58)
[2021-02-06] MEDS: PANTOPRAZOLE 40 MG TABLET PO SCH (07:58)
[2021-02-06] MEDS: LISINOPRIL-HCTZ 20-12.5 MG 1 EACH TAB PO SCH (07:58)
[2021-02-06] MEDS ORDERED: hydrALAZINE HCL 25 MG TAB PO SCH (13:30)
--- NOTE | 2021-02-06 13:44 | PN ---
PROGRESS NOTE DATE OF SERVICE: 02/07/2021 REASON FOR FOLLOWUP: Enterobacter bacteremia secondary to complicated urinary tract infection. INTERVAL HISTORY: Patient is afebrile. The patient is breathing comfortably. Patient denies having any chest pain. No shortness of breath or cough. No abdominal pain or diarrhea. PHYSICAL EXAMINATION: Blood pressure 164/87, pulse of 79, temperature 98.1. He is 95% on room air. General description is an elderly male up in the chair in no distress. Respiratory system: Unlabored breathing, clear to auscultation anteriorly. Heart S1, S2. Regular rate and rhythm. Abdomen: Soft. No tenderness. LABS: No new labs have been obtained today. DIAGNOSTIC IMPRESSION AND PLAN: Patient with Enterobacter bacteremia and secondary to complicated urinary tract infection, adequately overall improvement. Finish therapy with oral Cipro and close outpatient followup. MMODL / IJN: [id number] /
--- NOTE | 2021-02-07 00:47 | P.DS ---
Providers Date of admission: 02/01/21 10:26 Attending physician: Anand Payton Consults: 02/02/21 12:16 Consult Physician Routine Consulting Provider: Scottie Alvarenga Consult Reason/Comments: Hematuria Do you want consulting provider notified?: Already Contacted 02/02/21 12:22 Consult Physician Routine Consulting Provider: Shawn Bacon Consult Reason/Comments: Brain CT results Do you want consulting provider notified?: Already Contacted 02/02/21 12:23 Consult Physician Routine Consulting Provider: Braulio Mendez Consult Reason/Comments: Sepsis Do you want consulting provider notified?: Already Contacted Primary care physician: Deanna Hunter Hospital Course: Diagnoses: Enterobacter UTI and bacteremia Right hydronephrosis and hydroureter, improved urinary retention after discontinuing Lewis catheter Altered mental status secondary to metabolic encephalopathy from urinary problem, improved and patient back to normal. Neurology team signed off Obesity with BMI of 31.4 Hospital course: This is a pleasant 75 years old male with multiple medical problems presents with altered mental status secondary to UTI secondary to positive urine culture with Enterobacter and blood culture with the same microorganism. Patient has been treated with IV antibiotics ceftriaxone with ID team follow up closely. Patient showed interval improvement and on the day of discharge patient back to his normal state and he was eager to go home today. Patient will be discharged on oral antibiotics as per ID team. Urologist evaluated the patient and recommended to continue with current treatment and follow-up as an outpatient Neurologist evaluated the patient and workup was negative. Brain MRI showed no infarct. Neurology service signed off. Today patient was sitting at chair, he was at baseline and he was eager to go home with family at bedside. He denies chest pain or dyspnea. No vomiting. No abdominal pain. No urinary symptoms. No nausea vomiting. DC Lewis catheter with patient voided 300 mL and PVR was less than 100. No more hematuria. Blood pressure was slightly elevated and hydralazine was added, patient informed and instructed to follow up outpatient and he agrees Patient was cleared for discharge by both ID team and neurologist and urologist. Problems and management plan were discussed with the patient and he verbalized understanding and acceptance Patient was found stable and can be discharged home however he needs follow-up as an outpatient. Patient was instructed to follow up with PCP Dr. Hunter within one week and patient agrees with the appointments made for him on 02/09 stating he will follow-up. Patient also instructed to follow up with ID team on 02/14 and he agrees. And with urologist Dr. alvarenga in one week, importance of cystoscopy and risk of cancer are explained for the patient and daughter at bedside and they verbalized understanding and acceptance. Staff tried to make appointment for the patient and they were informed that office will call the p atient. Physical exam -Gen: patient is a AAOx3, no distress. Obese CVS: S1-S2, RRR, no murmur Lungs: B/L CTA, no wheezing Abdomen: soft, no distention, no tenderness, positive bowel sounds Extremity: no leg edema or induration Time spent more than 35 minutes Patient Condition at Discharge: Stable Plan - Discharge Summary Discharge Rx Participant: No New Discharge Prescriptions: New Acetaminophen Tab [Tylenol] 650 mg PO Q6HR PRN tab PRN Reason: Mild Pain Or Fever > 100.5 Ciprofloxacin HCl [Cipro] 500 mg PO Q12HR 10 Days #20 tablet amLODIPine [Norvasc] 10 mg PO DAILY 30 Days #30 tab Continue Aspirin 81 mg PO DAILY Tamsulosin HCl [Flomax] 0.4 mg PO DAILY Omeprazole [PriLOSEC] 40 mg PO DAILY Lisinopril-Hctz 20-12.5 mg [Zestoretic 20-12.5] 1 tab PO DAILY Atorvastatin Calcium [Lipitor] 10 mg PO DAILY Discharge Medication List Aspirin 81 mg PO DAILY 09/17/17 [History] Omeprazole [PriLOSEC] 40 mg PO DAILY 09/17/17 [History] Tamsulosin HCl [Flomax] 0.4 mg PO DAILY 09/17/17 [History] Atorvastatin Calcium [Lipitor] 10 mg PO DAILY 02/01/21 [History] Lisinopril-Hctz 20-12.5 mg [Zestoretic 20-12.5] 1 tab PO DAILY 02/01/21 [History] Acetaminophen Tab [Tylenol] 650 mg PO Q6HR PRN tab 02/06/21 [Rx] Ciprofloxacin HCl [Cipro] 500 mg PO Q12HR 10 Days #20 tablet 02/06/21 [Rx] amLODIPine [Norvasc] 10 mg PO DAILY 30 Days #30 tab 02/06/21 [Rx] Follow up Appointment(s)/Referral(s): Deanna Hunter III, MD [Primary Care Provider] - 02/09/21 10:00 am (with Nurse Practitioner) Scottie Alvarenga MD [STAFF PHYSICIAN] - 1 Week (office will call with appointment time.) Braulio Mendez MD [STAFF PHYSICIAN] - 02/14/21 2:15 pm Patient Instructions/Handouts: Urinary Tract Infection in Men (DC) Activity/Diet/Wound Care/Special Instructions: Activity Limited until follow-up Follow-up primary care provider on discharge Continue taking antibiotics until finished Follow-up neurology outpatient in 1-2 weeks Monitor closely for fevers and treat with Tylenol Encourage fluids and rest Continue current diet Discharge Disposition: HOME SELF-CARE
== END 2021-02-06 14:27 | disposition home or self-care (01) | DRG 871 ==
LOC: EC 08:28 → 4SSUR 10:26 → 1SOBS 18:12 → 4SSUR 02-02 16:58
PROVIDERS: ADMIT Hospitalist; ATTEND Hospitalist
DX: A41.59 Other Gram-negative sepsis (principal); G93.41 Metabolic encephalopathy; J96.01 Acute respiratory failure with hypoxia; E87.1 Hypo-osmolality and hyponatremia; N13.6 Pyonephrosis; E87.2 Acidosis; I45.2 Bifascicular block; E66.9 Obesity, unspecified; E78.5 Hyperlipidemia, unspecified; R31.0 Gross hematuria; Z20.822 Contact with and (suspected) exposure to COVID-19; Z79.82 Long term (current) use of aspirin; Z79.899 Other long term (current) drug therapy; R65.20 Severe sepsis without septic shock; I10 Essential (primary) hypertension; J32.9 Chronic sinusitis, unspecified; K21.9 Gastro-esophageal reflux disease without esophagitis; N40.0 Benign prostatic hyperplasia without lower urinary tract symptoms; M19.90 Unspecified osteoarthritis, unspecified site; H26.9 Unspecified cataract; E87.6 Hypokalemia; H70.90 Unspecified mastoiditis, unspecified ear; Z68.31 Body mass index [BMI] 31.0-31.9, adult; Z87.440 Personal history of urinary (tract) infections; Z87.891 Personal history of nicotine dependence
CPT/HCPCS: 36415; 70450; 70553; 71045; 74176; 80048; 80053; 81001; 83605; 84484; 85025; 85610; 85730; 87040; 87077; 87086; 87186; 87502; 87635; 93005; 96365; 96375; 99291

== ENCOUNTER → 2022-03-13 | Outpatient (CLI) | payer MEDICARE ==
--- NOTE | 2022-03-14 09:57 | CA ---
Transthoracic Echo Report Name: Liam Luong Age: 76 Gender: M : 1945 Exam Date: 03/13/2022 13:24 Exam Location: [place] [facility] Ht (in): 68 Wt (lb): 229 Ordering Physician: Deanna Hunter MD Attending/Referring Phys: [id number], Dale [employer] Operations Inspector Loraine Fried, RDCS Procedure CPT: Indications: R01.1 cardiac murmur Cardiac Hx: Technical Quality: Fair Contrast 1: Total Dose (mL): Contrast 2: Total Dose (mL): MEASUREMENTS (Male / Female) Normal Values 2D ECHO LV Diastolic Diameter PLAX 5.1 cm 4.2 - 5.9 / 3.9 - 5.3 cm LV Systolic Diameter PLAX 3.4 cm IVS Diastolic Thickness 1.3 cm 0.6 - 1.0 / 0.6 - 0.9 cm LVPW Diastolic Thickness 1.5 cm 0.6 - 1.0 / 0.6 - 0.9 cm LV Relative Wall Thickness 0.6 RV Internal Dim ED PLAX 3.4 cm LA Systolic Diameter LX 4.1 cm 3.0 - 4.0 / 2.7 - 3.8 cm LA Volume 85.4 cm??? 18 - 58 / 22 - 52 cm??? M-MODE Aortic Root Diameter MM 4.3 cm MV E Point Septal Separation 1.2 cm AV Cusp Separation MM 2.1 cm DOPPLER AV Peak Velocity 182.7 cm/s AV Peak Gradient 13.4 mmHg AI Peak Velocity 337.7 cm/s AI Peak Gradient 45.6 mmHg AI Pressure Half Time 409.2 ms MV Area PHT 2.7 cm??? Mitral E Point Velocity 88.9 cm/s Mitral A Point Velocity 117.8 cm/s Mitral E to A Ratio 0.8 MV Deceleration Time 281.4 ms MV E' Velocity 5.8 cm/s Mitral E to MV E' Ratio 15.4 FINDINGS Left Ventricle Left ventricular ejection fraction is estimated at 55-60 %. Left ventricular cavity size normal. Mildly increased septal wall thickness. Right Ventricle Mild right ventricular dilatation. Unable to estimate the right ventricular systolic pressure. Right Atrium Normal right atrial size. Left Atrium Mildly increased left atrial diameter. Severely increased left atrial volume. Mildly increased left atrial area. No evidence for an atrial septal defect. Mitral Valve Structurally normal mitral valve. No mitral stenosis, regurgitation or prolapse. Aortic Valve Trileaflet aortic valve. No aortic valve stenosis. Mild aortic regurgitation. Tricuspid Valve Structurally normal tricuspid valve. No tricuspid stenosis, regurgitation or prolapse. Pulmonic Valve Pulmonic valve not well visualized. Pericardium Normal pericardium. No pericardial effusion. Aorta Aortic aneurysm at the level of the sinuses of valsalva 43 mm CONCLUSIONS Left ventricular ejection fraction 55-60% Mildly dilated left atrium Mild aortic regurgitation Aortic aneurysm at the level of the sinuses of valsalva 43 mm Previewed by: Dr. Oumar Bliss DO (Electronically Signed) Final Date: 14 March 2022 09:56
== END | disposition home or self-care (01) ==
LOC: RADECHMAIN 13:21
PROVIDERS: ATTEND Family Medicine
DX: R01.1 Cardiac murmur, unspecified (principal)
CPT/HCPCS: 93306

== ENCOUNTER → 2022-04-06 | Outpatient (CLI) | payer MEDICARE | END | disposition home or self-care (01) | LOC: LABWHC1 09:43 | PROVIDERS: ATTEND Internal Medicine Interventional Cardiology | DX: I44.4 Left anterior fascicular block (principal) | CPT/HCPCS: 36415; 84443 ==

== ENCOUNTER → 2022-04-13 | Outpatient (CLI) | payer MEDICARE ==
--- NOTE | 2022-04-13 10:23 | CT ---
EXAMINATION TYPE: CT angio chest DATE OF EXAM: 04/13/2022 COMPARISON: None HISTORY: Thoracic AA w/o rupture. CT DLP: 916 mGycm CONTRAST: CTA thoracic aorta with 3-D reconstruction is performed and with IV Contrast, patient injected with 1 00 mL of Isovue 370. Contrast CTA of the thoracic aorta was performed from the lung apex through the upper abdomen. 3D re construction imaging obtained at a separate workstation. CT Chest: THORACIC AORTA: Ascending thoracic aorta measures 4.2 cm AP dimension compatible with mild aneurysmal dilatation. Aortic arch and descending thoracic aorta are of normal caliber. Mild atheromatous hoang es seen. There is no evidence for dissection or periaortic collection. LUNGS: The lungs are clear and free of infiltrate or atelectasis. No pulmonary nodule or mass is det ected. There is nodular pleural thickening seen posteriorly within the upper lobes. Follow-up study i n 4-6 months is advised. No pleural effusion or CT evidence of interstitial lung disease. MEDIASTINUM: No evidence for mediastinal hematoma. The heart is not enlarged. No evidence for med iastinal mass or adenopathy. HILAR STRUCTURES: No evidence for mass. No hilar adenopathy is appreciated. OTHER: Right-sided nephrolithiasis. Parapelvic renal cysts and or hydronephrosis. Incomplete imaging of the kidneys. IMPRESSION- #1 nodular pleural thickening upper lobes posteriorly. This is nonspecific and CT follow-up study in 4-6 months is advised. 2. Mild aneurysmal dilatation of descending thoracic aorta.
== END | disposition home or self-care (01) ==
LOC: RADCTMAIN 08:09
PROVIDERS: ATTEND Internal Medicine Clinical Cardiac Electrophysiology
DX: I71.20 Thoracic aortic aneurysm, without rupture, unspecified (principal); J94.8 Other specified pleural conditions; R91.1 Solitary pulmonary nodule
CPT/HCPCS: 82565; 84520; 71275; Q9967

== ENCOUNTER → 2023-03-20 | Outpatient (CLI) | payer MEDICARE ==
[2023-03-20 16:25] LABS: Basophils # (A) 0.04 X 10*3/uL (0.00-0.10); Basophils % (A) 0.6 %; Eosinophils # (A) 0.17 X 10*3/uL (0.04-0.35); Eosinophils % (A) 2.4 %; HCT 45.9 % (39.6-50.0); HGB 14.6 g/dL (13.0-17.0); Lymphocytes # (A) 1.58 X 10*3/uL (0.90-5.00); MCH 29.4 pg (27.0-32.0); MCHC 31.8 g/dL (32.0-37.0); MCV 92.5 FL (80.0-97.0); Mean Platelet Volume 12.4 FL (9.5-12.2); Monocytes # (A) 0.53 X 10*3/uL (0.20-1.00); Monocytes % (A) 7.4 %; NRBC Per 100 WBC 0 X 10*3/uL (0.00-0.01); Neutrophils # (A) 4.83 X 10*3/uL (1.80-7.70); Neutrophils % (A) 67.3 %; Platelet Count 183 X 10*3/uL (140-440); RBC 4.96 X 10*6/uL (4.40-5.60); RDW 14.6 % (11.5-14.5); WBC 7.17 X 10*3/uL (4.50-10.00)
[2023-03-20 16:29] LABS: ALT 22 U/L (10-49); AST 15 U/L (14-35); Albumin 4.3 g/dL (3.8-4.9); Albumin/Globulin Ratio 1.79 Ratio (1.60-3.17); Alkaline Phosphatase 79 U/L (41-126); BUN/Creat Ratio 21.77 Ratio (12.00-20.00); Blood Urea Nitrogen 28.3 mg/dL (9.0-27.0); Calcium 9.3 mg/dL (8.7-10.3); Carbon Dioxide 24.1 mmol/L (21.6-31.8); Chloride 106 mmol/L (96-109); Chol/HDL Ratio 2.69 Ratio; Globulin 2.4 g/dL (1.6-3.3); Glucose 87 mg/dL (70-110); LDL Cholesterol,Calculated 82.5 mg/dL (0.0-131.0); Potassium 4.1 mmol/L (3.5-5.5); Sodium 142 mmol/L (135-145); Total Bilirubin 0.6 mg/dL (0.3-1.2); Total Protein 6.7 g/dL (6.2-8.2); VLDL Calculation 14.26 mg/dL (5.00-40.00)
== END | disposition home or self-care (01) ==
LOC: LABWHC1 08:49
PROVIDERS: ATTEND Internal Medicine
DX: Z11.59 Encounter for screening for other viral diseases (principal); I10 Essential (primary) hypertension
CPT/HCPCS: 36415; 80053; 80061; 84443; 85025; 86803

== ENCOUNTER → 2023-04-18 | Outpatient (CLI) | payer MEDICARE ==
[2023-04-18 15:37] LABS: Appearance,Urine Clear (Clear); Bilirubin,Urine Negative (Negative); Blood,Urine Large (Negative); Color,Urine Light Yellow; Glucose,Urine (UA) Negative (Negative); Ketones,Urine Negative (Negative); Leukocyte Esterase,Urine Negative (Negative); Mucus,Urine Rare /hpf; Nitrite,Urine Negative (Negative); Protein,Urine Negative (Negative); RBC,Urine >182 /hpf (0-5); Specific Gravity,Urine 1.014 (1.001-1.035); Squamous Epithelial Cell,Urine 1 /hpf (0-4); Urobilinogen,Urine <2.0 mg/dL (<2.0); WBC,Urine 3 /hpf (0-5)
[2023-04-18 15:53] LABS: African American GFR (CKD) 87 (>60 ml/min/1.73 sqM); Blood Urea Nitrogen 18 mg/dL (9-20); Non-African American GFR(CKD) 75 (>60 ml/min/1.73 sqM)
--- NOTE | 2023-04-19 09:10 | CT ---
EXAMINATION TYPE: CT chest w con DATE OF EXAM: 04/18/2023 COMPARISON: 04/13/2022 HISTORY: asbestos exposure CT DLP: 571 mGycm, Automated exposure control for dose reduction was used. CONTRAST: Performed injected with 100 ml mL of Isovue 300. TECHNIQUE: Axial images were obtained at 5 mm thick sections. Reconstructed images are reviewed on [employer] computer in the coronal plane. FINDINGS: Portion of the thyroid visualized is normal. No suspicious lung nodules or focal infiltrates are present. Some posterior pleural thickening is at the lung apices and posterior upper lung mendoza. Findings appear stable from comparison. There is a 1.0 cm pretracheal lymph node. The ascending aorta diameter at the level of the main pulm onary artery is 4.4 cm. The main pulmonary artery diameter at the bifurcation is 3.[address] sections are obtained through the upper abdomen. Small hiatal hernia is present. IMPRESSION: 1. Posterior upper lung field pleural thickening. Continued monitoring is recommended. 2. 1.0 cm pretracheal lymph node present previously. 3. Ascending thoracic aortic aneurysm, stable from comparison.
--- NOTE | 2023-04-19 09:32 | US ---
EXAMINATION TYPE: US kidneys/renal and bladder DATE OF EXAM: 04/18/2023 COMPARISON: CT 02/01/2021. CLINICAL INDICATION: Male, 77 years old with history of J92.9; EXAM MEASUREMENTS: Right Kidney: 11.3 x 5.3 x 4.8 cm Left Kidney: 12.9 x 6.1 x 5.2 cm Right Kidney: hydronephrosis/hydroureter. Possible stone = 1.5cm Left Kidney: multiple parapelvic cystic lesions/hydronephrosis Bladder: wnl Bilateral Jets seen: no Prostate = 5.5cm IMPRESSION: 1. Moderate right hydronephrosis which appears similar to 2020 study. There is a calculus is seen on prior CT. 2. Multiple peripelvic left renal cyst. 3. Prostatomegaly, correlate with serum PSA.
== END | disposition home or self-care (01) ==
LOC: RADCTMAIN 14:51
PROVIDERS: ATTEND Internal Medicine
DX: J92.9 Pleural plaque without asbestos (principal); N28.9 Disorder of kidney and ureter, unspecified; N13.30 Unspecified hydronephrosis; N28.1 Cyst of kidney, acquired; N40.0 Benign prostatic hyperplasia without lower urinary tract symptoms; I71.21 Aneurysm of the ascending aorta, without rupture; Z77.090 Contact with and (suspected) exposure to asbestos
CPT/HCPCS: 82565; 84520; 81001; 76770; 71260; 36415; Q9967

== ENCOUNTER → 2023-05-15 | Outpatient (CLI) | payer MEDICARE ==
[2023-05-15 13:36] LABS: African American GFR (CKD) 87 (>60 ml/min/1.73 sqM); Blood Urea Nitrogen 24 mg/dL (9-20); Non-African American GFR(CKD) 75 (>60 ml/min/1.73 sqM)
--- NOTE | 2023-05-17 12:30 | CT ---
EXAMINATION TYPE: CT urogram wo/w con DATE OF EXAM: 05/15/2023 COMPARISON: 02/01/2021 HISTORY: hydronephrosis CT DLP: 5296 mGycm Automated exposure control for dose reduction was used. Contrast: None Technique: Axial images 5 mm thick sections. 3 mm thick sections were also obtained. Pre and postcont rast imaging was performed. Delayed imaging was performed. FINDINGS: Limited CT sections are obtained from lung bases which are clear CT ABDOMEN: Liver spleen pancreas gallbladder unremarkable. Adrenal glands are normal. Calcification is within the aorta. Inferior vena cava is normal. Loops of bowel without oral contrast are unremarkable. CT PELVIS: Urinary bladder wall may have some mild thickening. Prostate appears normal. No free fluid is within the pelvis or graft kidneys: Attention is paid to the bilateral kidneys. There is marked h ydronephrosis present on the right. There is a nonobstructing right renal calcification measuring 1.3 cm within the dependent right renal pelvis. Note is made of renal cyst on the posterior mid right kidney measuring 2.0 cm. Left peripelvic cysts are present. No left-sided hydronephrosis is evident. Right hydroureter extends to the urinary bladder. Obstructing etiology is not identified. Delayed yvette ges obtained through the kidneys appear unremarkable. Contrast however is limited right ureter. Left ureter has a normal appearance. No obstruction or dilatation is evident. Some moderate right hydroure ter is present to the urinary bladder. Three-D reconstructed images were reviewed on the computer. There is nonvisualization of the right ur eter due to lack of contrast incompletely opacifying the artery dilated renal pelvis. On sagittal rec onstructed images the ureter can be visualized to the urinary bladder without contrast. IMPRESSION: 1. MARKED RIGHT HYDRONEPHROSIS WITH MODERATE RIGHT HYDROURETER TO THE URINARY BLADDER. CONTRAST FILLI NG THE RIGHT URETER HOWEVER IS NOT EVIDENT DURING THIS EXAM. THE ETIOLOGY OF THE HYDRONEPHROSIS NOT R ADIOGRAPHICALLY APPARENT. CONSIDER CYSTOSCOPY. 2. LEFT RENAL PERIPELVIC CYSTS WITHOUT HYDRONEPHROSIS. NO SUSPICIOUS LEFT URETERAL ABNORMALITY.
== END | disposition home or self-care (01) ==
LOC: RADCTMAIN 12:53
PROVIDERS: ATTEND Urology
DX: N13.30 Unspecified hydronephrosis (principal); N28.1 Cyst of kidney, acquired
CPT/HCPCS: 82565; 84520; 74178; 36415; 74400; Q9967

== ENCOUNTER → 2023-05-24 | Outpatient (CLI) | payer MEDICARE ==
[2023-05-24 15:33] LABS: Appearance,Urine Clear (Clear); Bilirubin,Urine Negative (Negative); Blood,Urine Large (Negative); Color,Urine Yellow (Yellow); Ketones,Urine Negative (Negative); Nitrite,Urine Negative (Negative); Specific Gravity,Urine 1.018 (1.001-1.030); Urobilinogen,Urine 0.2 E.U./DL
[2023-05-24 15:45] LABS: Bacteria,Urine None Seen (None Seen)
[2023-05-24 16:02] LABS: Basophils # (A) 0.02 X 10*3/uL (0.00-0.10); Basophils % (A) 0.3 %; Eosinophils # (A) 0.32 X 10*3/uL (0.04-0.35); Eosinophils % (A) 4.6 %; HCT 44.7 % (39.6-50.0); Lymphocytes # (A) 1.11 X 10*3/uL (0.90-5.00); Lymphocytes % (A) 16.1 %; MCH 30.5 pg (27.0-32.0); MCHC 33.6 g/dL (32.0-37.0); Mean Platelet Volume 12.3 FL (9.5-12.2); Monocytes # (A) 0.48 X 10*3/uL (0.20-1.00); NRBC Per 100 WBC 0 X 10*3/uL (0.00-0.01); Neutrophils # (A) 4.94 X 10*3/uL (1.80-7.70); Neutrophils % (A) 71.6 %; Platelet Count 206 X 10*3/uL (140-440); RBC 4.91 X 10*6/uL (4.40-5.60); RDW 14.5 % (11.5-14.5)
[2023-05-24 16:54] LABS: Blood Urea Nitrogen 22.2 mg/dL (9.0-27.0); Calcium 9.6 mg/dL (8.7-10.3); Carbon Dioxide 28.2 mmol/L (21.6-31.8); Chloride 103 mmol/L (96-109); Glucose 88 mg/dL (70-110); Potassium 4.4 mmol/L (3.5-5.5); Sodium 144 mmol/L (135-145)
== END | disposition home or self-care (01) ==
LOC: LABPAT 09:58
PROVIDERS: ATTEND Urology
DX: Z01.812 Encounter for preprocedural laboratory examination (principal); N13.30 Unspecified hydronephrosis; N20.0 Calculus of kidney
CPT/HCPCS: 36415; 80048; 81001; 85025; 87086

== ENCOUNTER 2023-06-04 08:00 | Day surgery (SDC) | payer MEDICARE ==
[~2023-06-04 08:00] MED LIST changes: +HYDROmorphone 0.5 MG/0.5 ML SYRINGE IVP PRN; -LACTATED RINGERS 1,000 ML IV SCH; +LIDOCAINE 1% (10MG/ML) FOR IV START INTRADERMA PRN; -LIDOCAINE 1% INJ 10MG/ML (20 ML MDV) ONE; +METOCLOPRAMIDE 5 MG/ML 2 ML VIAL IVP PRN; -PROPOFOL 10 MG/ML 20 ML VIAL IV ONE
--- NOTE | 2023-06-04 08:20 | P.HPIHPCON ---
History of Present Illness H&P Date: 06/04/23 Chief Complaint: Right-sided hydronephrosis, renal stone This is an 78-year-old male with a history of a right-sided UPJ obstruction repaired with a robotic pyeloplasty approximately 10 years ago at [facility]. Underwent a CT abdomen pelvis that showed evidence of right-sided hydronephrosis, on CT the renal pelvis was dilated and in addition the ureter was dilated all the way down to the UVJ. On delayed images there was no drainage of contrast from the right kidney. In addition there is also a 1 cm stone in the right renal pelvis in close proximity to the UPJ. Discussed with him given the ureteral dilation and the delayed drainage of contrast I do recommend proceeding with a retrograde pyelogram to evaluate the ureter. Discussed also if there is evidence of ureteral obstruction then we will proceed with a ureteral balloon dilator. Discussed if the ureter is dilated then we will attempt to do a ureteroscopy with holmium laser at the same setting to address his stone. Discussed with him that if the UPJ is narrowed and I may not be able to do a ureteroscopy with holmium laser in the same setting. Risk which includes but not limited to bleeding, infection, injury to the ureter was also discussed. He understood all the risk and agreed to proceed Consent for Procedure: I have explained the operation/procedure to the patient, including the risks, benefits, side effects, alternative therapies (including not receiving the prop osed treatment or service), the likelihood of the patient achieving his/her goals, and potential recuperation problems for the procedure/sedation/analgesia, as well as any blood products, if indicated. I also explained to the patient the risks, benefits and side effects of the alternatives, as well as the risks related to not receiving the proposed procedure, care, treatment, or services. Past Medical History Past Medical History: GERD/Reflux, Hyperlipidemia, Hypertension, Osteoarthritis (OA), Prostate Disorder Additional Past Medical History / Comment(s): pos.cologuard, hemorrhoids, BPH, kidney stone History of Any Multi-Drug Resistant Organisms: None Reported Past Surgical History: Hernia Repair, Orthopedic Surgery Additional Past Surgical History / Comment(s): hemorroidectomy, cataracts, ureter repair, lt shoulder surgery, colonoscopy-no polyps Past Anesthesia/Blood Transfusion Reactions: No Reported Reaction Smoking Status: Former smoker - Past Family History Mother Family Medical History: No Reported History Brother(s) Family Medical History: Cancer Sister(s) Family Medical History: Cancer Medications and Allergies Home Medications Medication Instructions Recorded Confirmed Type Aspirin 81 mg PO DAILY 09/17/17 06/03/23 History Omeprazole [PriLOSEC] 40 mg PO QAM 09/17/17 06/03/23 History Tamsulosin HCl [Flomax] 0.4 mg PO BID 09/17/17 06/03/23 History Atorvastatin Calcium [Lipitor] 10 mg PO QAM 02/01/21 06/03/23 History Lisinopril-Hctz 20-12.5 mg 1.5 tab PO QAM 02/01/21 06/03/23 History [Zestoretic 20-12.5] Acetaminophen Tab [Tylenol] 650 mg PO Q6HR PRN tab 02/06/21 06/03/23 Rx Finasteride [Proscar] 5 mg PO QAM 06/03/23 06/03/23 History Multivitamins, Thera [Multivitamin 1 tab PO DAILY 06/03/23 06/03/23 History (formulary)] amLODIPine [Norvasc] 10 mg PO QAM 06/03/23 06/03/23 History Allergies Allergy/AdvReac Type Severity Reaction Status Date / Time No Known Allergies Allergy Verified 06/03/23 08:34 Surgical - Exam - General no distress, no pain - ENT normal nares, normal mucosa - Respiratory normal expansion, normal respiratory effort Assessment and Plan Assessment: OR for cystoscopy, right ureteroscopy, holmium laser lithotripsy, ureteral balloon dilation and stent insertion
[2023-06-04] MEDS: LACTATED RINGERS 1,000 ML IV SCH (08:34)
[2023-06-04] MEDS: ONDANSETRON 4 MG/2 ML VIAL IVP ONE (08:41)
[2023-06-04] MEDS: DEXAMETHASONE SOD PHOSPHATE 4 MG/ML 1 ML VIAL IV ONE (08:41)
--- NOTE | 2023-06-04 08:42 | XR ---
EXAMINATION TYPE: XR KUB DATE OF EXAM: 06/04/2023 8:29 AM CLINICAL INDICATION:Male, 78 years old with history of Hydronephrosis Right Renal Stone N13.30 N20.0; [facility] COMPARISON: 05/15/2023 TECHNIQUE: One radiographic view of the abdomen was obtained. FINDINGS: The bowel gas pattern is nonspecific without dilated loops of small or large bowel. There i s no evidence for organomegaly or pneumoperitoneum. The osseous structures are intact. Fecal mater ial and gas are demonstrated throughout the colon and rectum. Multilevel degeneration changes throug hout the spine. Pelvic phleboliths are seen. No renal calculi definitively visualized. Atherosclerosi s of the arterial vasculature. IMPRESSION: 1. No renal calculi definitively visualized on radiography. 2. Nonspecific bowel gas pattern without radiographic evidence for acute process.
[2023-06-04 08:46] VITALS: RESP 16
[2023-06-04] MEDS ORDERED: MIDAZOLAM 2 MG/2 ML VIAL ONE (10:32)
[2023-06-04] MEDS ORDERED: fentaNYL (PF) 50 MCG/ML 2 ML AMP ONE (10:32)
[2023-06-04] MEDS ORDERED: PROPOFOL 10 MG/ML 20 ML VIAL IV ONE (10:32)
[2023-06-04] MEDS: LACTATED RINGERS 1,000 ML IV ONE (11:51)
[2023-06-04 12:06] VITALS: TEMP 96.9
--- NOTE | 2023-06-04 12:22 | P.OP ---
Date of Procedure: 06/04/23 Preoperative Diagnosis: Right renal stone, hydronephrosis Postoperative Diagnosis: Same Procedure(s) Performed: Cystoscopy, right ureteroscopy, holmium laser lithotripsy, stone basketing, stent insertion, ureteral balloon dilation Implants: 6 Swazi by 26 cm stent in the right ureter Anesthesia: TERESA Surgeon: Scottie Alvarenga Estimated Blood Loss (ml): 5 Pathology: other (right renal stone) Condition: stable Disposition: PACU Indications for Procedure: This is an 78-year-old male with a history of a right-sided UPJ obstruction repaired with a robotic pyeloplasty approximately 10 years ago at [place]. Underwent a CT abdomen pelvis that showed evidence of right-sided hydronephrosis, on CT the renal pelvis was dilated and in addition the ureter was dilated all the way down to the UVJ. On delayed images there was no drainage of contrast from the right kidney. In addition there is also a 1 cm stone in the right renal pelvis in close proximity to the UPJ. Discussed with him given the ureteral dilation and the delayed drainage of contrast I do recommend proceeding with a retrograde pyelogram to evaluate the ureter. Discussed also if there is evidence of ureteral obstruction then we will proceed with a ureteral balloon dilator. Discussed if the ureter is dilated then we will attempt to do a ureteroscopy with holmium laser at the same setting to address his stone. Discussed with him that if the UPJ is narrowed and I may not be able to do a ureteroscopy with holmium laser in the same setting. Risk which includes but not limited to bleeding, infection, injury to the ureter was also discussed. He understood all the risk and agreed to proceed Operative Findings: Right UPJ narrowing, but I was able to navigate the scope passed into the bladder. A large stone in the renal pelvis that was dusted Description of Procedure: Patient brought to the operating room, general anesthesia was induced. He was prepped and draped in sterile fashion placed in dorsolithotomy position. Cyst oscopy fitted with 21 Swazi sheath was inserted per urethra, cystoscopy was performed which showed no abnormality within the bladder. Of note patient had a significant median lobe with intravesical extension. Attention was then carried to the right ureter orifice which was intubated with a 6 Fr open-ended catheter, retrograde Pyelogram was performed which showed no filling defect along the cour se of the ureter, at the proximal ureter there was narrowing that started approximately 2 cm from the UPJ, and there was significant dilation of the renal pelvis but with minimal calyces blunting. At this time a sensor wire was advanced through the catheter and the catheter was removed with the wire in place. Next under fluoroscopy and 1113 Swazi access sheath was passed over the wire and into the proximal ureter just distal to the area of narrowing. This time the flexible ureteroscope was inserted through the access sheath, the proximal ureter and the UPJ was narrowed but I was able to slowly navigate the scope past the narrowing into the bladder but there was narrowing at that point. At this point renoscopy was performed which showed a large stone in the renal pelvis. Using the holmium laser the stone was dusted, repeat renoscopy showed no sizable fragments or injury to the kidney, on fluoroscopy there was no radiopaque densities. sizable fragments was removed and sent for analysis. At this time pullback ureteroscopy was performed which showed no injury to the ureter or any ureteral stones as ureteroscope was withdrawn, a sensor wire was advanced through. Next a 15 Swazi ureteral balloon dilator was passed over the wire, and the UPJ was dilated further to 15 Swazi. The dilation was done under fluoroscopy. At this time the ureteral balloon dilator was withdrawn. Next a 6 Swazi by 26 cm stent was passed over the wire, the proximal curl was visualized under fluoroscopy and the distal curl was visualized using the cystoscope. A hydronephrotic drip was noticed. Patient tolerated procedure well was taken to recovery in stable condition
--- NOTE | 2023-06-04 12:54 | FL ---
EXAMINATION TYPE: FL urography retrograde Intraoperative/procedural fluoroscopic services were provid ed. Total fluoroscopy time is 91 seconds with a total of 9 submitted images to PACS. Please see the o perative/procedural note for further details. DAP: 1.57 mGym2
[2023-06-04 13:34] VITALS: BP 157/85; PULSE 64
== END 2023-06-04 14:14 | disposition home or self-care (01) ==
LOC: OR 08:00
PROVIDERS: ATTEND Urology
DX: N13.2 Hydronephrosis with renal and ureteral calculous obstruction (principal); I10 Essential (primary) hypertension; E78.5 Hyperlipidemia, unspecified; M19.90 Unspecified osteoarthritis, unspecified site; K21.9 Gastro-esophageal reflux disease without esophagitis; Z87.891 Personal history of nicotine dependence; Z87.442 Personal history of urinary calculi; Z79.899 Other long term (current) drug therapy
CPT/HCPCS: 82365; 74420; 74018; 52356; C2625; C1758; C1769; J2250; J1100; J0690; J2405; J3010; J2704

== ENCOUNTER → 2023-09-04 | Outpatient (CLI) | payer MEDICARE ==
--- NOTE | 2023-09-04 12:44 | XR ---
EXAMINATION TYPE: XR foot complete RT DATE OF EXAM: 09/04/2023 11:28 AM CLINICAL INDICATION:Male, 78 years old with history of M79.671 PAIN IN RIGHT FOOT; COMPARISON: None TECHNIQUE: XR foot complete RT examined in the AP, oblique, and lateral projections. FINDINGS: No evidence of any acute osseous pathology. No evidence of soft tissue swelling. Joints are preserve d. Multifocal degeneration changes throughout the joints of the foot with osteophyte formation and rita int space narrowing. Atherosclerosis of the arterial vasculature. IMPRESSION: 1. No evidence of acute fracture. 2. Multifocal degeneration changes throughout the foot with osteophyte formation and joint space theresa rowing.
== END | disposition home or self-care (01) ==
LOC: RADXRMAIN 11:02
PROVIDERS: ATTEND Internal Medicine
DX: M25.774 Osteophyte, right foot (principal)

== ENCOUNTER → 2023-10-28 | Outpatient (CLI) | payer MEDICARE ==
[~2023-10-28] MED LIST changes: +FUROSEMIDE 10 MG/ML 2 ML VIAL IV ONE; -HYDROmorphone 0.5 MG/0.5 ML SYRINGE IVP PRN; -LIDOCAINE 1% (10MG/ML) FOR IV START INTRADERMA PRN; -METOCLOPRAMIDE 5 MG/ML 2 ML VIAL IVP PRN
--- NOTE | 2023-10-28 15:02 | NM ---
EXAMINATION TYPE: NM lasix renogram DATE OF EXAM: 10/28/2023 COMPARISON: NONE CLINICAL INDICATION: Male, 78 years old with history of N13.30 UNSPECIFIED HYDRONEPHROSIS; Following administration of 11.2 mCi Tc 99m MAG3 with 20mg Lasix. Immediate images post injection FINDINGS: Left: 57.2 %. Right: 42.8 %. Max renal flow left: 6.5 minutes. Max renal flow right: 10 minutes. Satisfactory accumulation of radiotracer within both renal collecting systems. After the administrati on of Lasix, there is prompt excretion from both collecting systems. T 1/2 left: 17.5 minutes minutes. T 1/2 right: 15.9 minutes minutes. IMPRESSION: 1. No evidence for obstruction. 2. slight increased renal flow to the left kidney compared to the right.
== END | disposition home or self-care (01) ==
LOC: RADNMMAIN 11:56
PROVIDERS: ATTEND Urology
DX: N13.30 Unspecified hydronephrosis (principal)
CPT/HCPCS: 78708; A9562

== ENCOUNTER → 2024-04-01 | Outpatient (CLI) | payer MEDICARE ==
--- NOTE | 2024-04-01 13:36 | CT ---
EXAMINATION TYPE: CT chest wo con CT DLP: 609 mGycm, Automated exposure control for dose reduction was used. 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 Lack of IV or o ral contrast limits evaluation of solid and hollow organ viscera. . Coronal and sagittal reformats re viewed. FINDINGS: LUNGS/ PLEURA: Stable posterior bilateral upper lobe pleural nodular thickening. No pleural effusion, pneumothorax, or focal consolidation. No suspicious pulmonary nodule or mass. No calcified pleural plaques. AIRWAY: Patent and unremarkable.. HEART: Size within normal limits.No pericardial effusion. Mild coronary artery calcifications. MEDIASTINUM: No gross evidence of adenopathy. VASCULATURE: Stable ascending thoracic aortic aneurysm measuring up to 4.2 cm. Atherosclerotic calci fications aorta and its branches. MUSCULOSKELETAL: No acute osseous abnormalities. Partial visualization of anterior cervical fusion coffey [employer]ware. DISH of the mid to lower thoracic spine. SOFT TISSUES/LYMPH NODES: Mild bilateral gynecomastia. LOWER NECK: No significant findings. UPPER ABDOMEN: Redemonstration of marked right hydronephrosis with a nonobstructive 3 mm calculus wit hin the renal pelvis. Stable right renal exophytic cyst. Redemonstration of bilateral renal sinus cys ts. IMPRESSION: 1. Stable posterior bilateral upper lobe pleural nodular thickening dating back to 2021 and favored t o be benign due to stability. No suspicious pulmonary nodules or masses. 2. Stable ascending thoracic aortic aneurysm measuring up to 4.2 cm. 3. Redemonstration of marked right hydronephrosis with nonobstructive renal calculus within the renal pelvis. [facility], , 04/01/2024 1:34 PM
== END | disposition home or self-care (01) ==
LOC: RADCTMAIN 12:42
PROVIDERS: ATTEND Internal Medicine
DX: J92.9 Pleural plaque without asbestos (principal); I71.21 Aneurysm of the ascending aorta, without rupture; N13.2 Hydronephrosis with renal and ureteral calculous obstruction; N62 Hypertrophy of breast; I70.0 Atherosclerosis of aorta; N28.1 Cyst of kidney, acquired
CPT/HCPCS: 71250